=== PATIENT | male | born 1955 ===

== ENCOUNTER 2019-02-12 12:37 | Inpatient (IN) | payer MEDICAID, MEDICARE ==
[2019-02-12 14:34] LABS: BASO # 0.1 K/uL (0.0-0.2); BASO % 1.3 % (0.0-2.0); EOS # 0.2 K/uL (0.0-0.7); EOS % 2.2 % (0.0-4.0); HEMOGLOBIN 17.2 g/dL (12.0-18.0); LYMPH # 2.3 K/uL (1.0-4.3); LYMPH % 21.7 % (20.0-40.0); MEAN CELL VOLUME 91.2 fl (80.0-94.0); MEAN CORPUSCULAR HEMOGLOBIN 31.6 pg (27.0-31.0); MEAN CORPUSCULAR HGB CONC 34.6 g/dL (33.0-37.0); MONO # 0.8 K/uL (0.0-0.8); MONO % 7.2 % (0.0-10.0); NEUT # 7.2 K/uL (1.8-7.0); NEUT % 67.6 % (50.0-75.0); NRBC % 0.1 % (0.0-0.0); RBC 5.46 Mil/uL (4.40-5.90); RED CELL DISTRIBUTION WIDTH 13.8 % (11.5-14.5); WHITE BLOOD COUNT 10.7 K/uL (4.8-10.8)
[2019-02-12 14:47] LABS: ALB/GLOB RATIO 1.2 (1.0-2.1); ALBUMIN 4.1 g/dL (3.5-5.0); ALT/SGPT 48 U/L (21-72); AST/SGOT 38 U/L (17-59); BLOOD UREA NITROGEN 22 mg/dl (9-20); GFR NON-AFRICAN AMERICAN 56; LIPASE 149 U/L (23-300)
[2019-02-12 14:59] LABS: B-TYPE NATRIURETIC PEPTIDE 35.1 pg/ml (0-900)
--- NOTE | 2019-02-12 15:06 | ED PDOC ---
HPI: General Adult Time Seen by Provider: 02/12/19 14:00 Chief Complaint (Nursing): Abdominal Pain Chief Complaint (Provider): abd pain History Per: Patient History/Exam Limitations: no limitations Onset/Duration Of Symptoms: Days Current Symptoms Are (Timing): Still Present Severity: Moderate Pain Scale Rating Of: 6 Additional History Per: Patient Additional Complaint(s): 63 y/o male with hx of HTN and CAD presents with multiple complaints, intermittent chest pain, shortness of breath on exertion, intermittent dizziness, abdominal pain and nausea. Patient states he has not been feeling well for 3 months post having a colonoscopy and endoscopy. patient states he's been having intermittent left sided chest pain with exertion and increased Shortness of breath. He states lately he feels his abdomen has been distended and slight lower extremity swelling. Patient reports he has not taken "water pill" for a few weeks. Patient also states he had stent placement a month ago. Patient denies fever, vomiting, unilateral weakness. Past Medical History Reviewed: Historical Data, Nursing Documentation, Vital Signs Vital Signs: Last Vital Signs Temp 99 F 02/12/19 12:53 Pulse 112 H 02/12/19 12:53 Resp 16 02/12/19 12:53 BP 147/74 02/12/19 12:53 Pulse Ox 99 02/12/19 12:53 - Medical History PMH: CAD, Colonic Polyps, CVA (x2), Gastritis, HTN - Surgical History Surgical History: Coronary Stent - Family History Family History: States: Unknown Family Hx - Living Arrangements Living Arrangements: With Family - Social History Alcohol: None Drugs: Denies - Immunization History Hx Tetanus Toxoid Vaccination: No Hx Influenza Vaccination: Yes Hx Pneumococcal Vaccination: Yes - Home Medications Home Medications: Ambulatory Orders Medication Instructions Recorded Clopidogrel [Plavix] 75 mg PO DAILY 06/05/18 amLODIPine [Norvasc] 10 mg PO DAILY 06/05/18 Chlorthalidone [Hygroton] 50 mg PO DAILY 02/12/19 Omeprazole 40 mg PO DAILY 02/12/19 Ondansetron [Zofran Tab] 4 mg PO Q8 PRN 02/12/19 - Allergies Allergies/Adverse Reactions: Allergies Allergy/AdvReac Type Severity Reaction Status Date / Time No Known Allergies Allergy Verified 02/12/19 12:53 Review of Systems ROS Statement: Except As Marked, All Systems Reviewed And Found Negative Constitutional: Positive for: Weakness (generalized ). Negative for: Fever Eyes: Negative for: Pain Cardiovascular: Positive for: Chest Pain. Negative for: Palpitations Respiratory: Positive for: Shortness of Breath, SOB with Exertion. Negative for: Cough, Wheezing Gastrointestinal: Positive for: Nausea, Abdominal Pain. Negative for: Vomiting, Diarrhea Neurological: Positive for: Weakness, Dizziness. Negative for: Numbness, Incoordination, Change in Speech, Confusion, Altered Mental Status Physical Exam - Reviewed Nursing Documentation Reviewed: Yes Vital Signs Reviewed: Yes - Physical Exam Appears: Positive for: Well, Non-toxic, No Acute Distress Head Exam: Positive for: ATRAUMATIC, NORMAL INSPECTION, NORMOCEPHALIC Skin: Positive for: Normal Color, Warm, DRY Eye Exam: Positive for: EOMI, Normal appearance, PERRL ENT: Positive for: Normal ENT Inspection Neck: Positive for: Normal, Painless ROM Cardiovascular/Chest: Positive for: Regular Rate, Rhythm, Murmur. Negative for: Chest Non Tender, Edema, JVD Respiratory: Positive for: Normal Breath Sounds. Negative for: Wheezing, Respiratory Distress Pulses-Femoral (L): 2+ Pulses-Femoral (R): 2+ Pulses-Radial (L): 2+ Pulses-Radial (R): 2+ Gastrointestinal/Abdominal: Positive for: Normal Exam, Bowel Sounds (normactive ), Soft, Tenderness (epigastric ), Distended (soft ) Back: Positive for: Normal Inspection. Negative for: L CVA Tenderness, R CVA Tenderness Extremity: Positive for: Normal ROM Neurological/Psych: Positive for: Awake, Alert, Normal Tone, Oriented - Laboratory Results Result Diagrams: 02/12/19 14:25 02/12/19 14:25 Lab Results: Troponin I 0.0130 ng/mL (0.00-0.120) 02/12/19 14:25 NT-Pro-B Natriuret Pep 35.1 pg/ml (0-900) 02/12/19 14:25 Total Bilirubin 0.4 mg/dl (0.2-1.3) 02/12/19 14:25 AST 38 U/L (17-59) 02/12/19 14:25 ALT 48 U/L (21-72) 02/12/19 14:25 Alkaline Phosphatase 101 U/L (38-126) 02/12/19 14:25 Total Protein 7.7 G/DL (6.3-8.2) 02/12/19 14:25 Albumin 4.1 g/dL (3.5-5.0) 02/12/19 14:25 Globulin 3.5 gm/dL (2.2-3.9) 02/12/19 14:25 Albumin/Globulin Ratio 1.2 (1.0-2.1) 02/12/19 14:25 Lipase 149 U/L (23-300) 02/12/19 14:25 - ECG ECG Rhythm: Positive for: Sinus Rhythm Interpretation Of Abn EKG: ekg compared to previous EKG, no significant changes seen interpreted by dr. rivers Rate: 99 O2 Sat by Pulse Oximetry: 99 Pulse Ox Interpretation: Normal Medical Decision Making Medical Decision Making: --CBC --CMP --LIPASE --TROPONIN --EKG --CXR --IV INSERTION --ASPIRIN --KDUR: POTASSIUM 3.1 --LABS REVIEWED BY ME, K+:3.1 KDUR FOR SUPPLEMENT. CXR IS NEG, NEG TROPONIN. CASE DISCUSSED WITH DR. RIVERS. DR. SALAMANCA CALLED FOR ADMISSION TO TELE OBS/ R/O ACS WITH CARDIO CONSULT DR. Saman BENTON. CLINICAL FINDINGS DISCUSSED WITH [facility] FAMILY-HIPPA COMPLIANT AND AGREE WITH PLAN. 16:35; CASE DISCUSSED WITH DR. SALAMANCA, PATIENT ADMISSION FOR TELE-OBS, DX CHEST PAIN R/O ACS 16:37: DR. Saman BENTON AWARE OF CONSULT, MD WILL SEE PATIENT ON CONSULT. Accession No. : [id number] Patient Name / ID : ANTHONY ZEPEDA / [id number] Exam Date : 02/12/2019 14:55:59 ( Approved ) Study Comment : Sex / Age : M / 63Y Creator : aidee banks Dictator : Frank Quiroz MD Air Pollution Specialist : Agriculture Scientist : Frank Quiroz MD Approver2 : Report Date : 02/12/2019 15:27:43 My Comment : Date of service: 02/12/2019 HISTORY: shortness of breath COMPARISON: No prior. TECHNIQUE: Chest PA and lateral views FINDINGS: LUNGS: No active pulmonary disease. PLEURA: No significant pleural effusion identified. No pneumothorax apparent. CARDIOVASCULAR: No aortic atherosclerotic calcification present. Normal cardiac size. No pulmonary vascular congestion. OSSEOUS STRUCTURES: No significant abnormalities. VISUALIZED UPPER ABDOMEN: Normal. OTHER FINDINGS: None. IMPRESSION: No active disease. 1658: PATIENT REQUESTING CT ABD/PELVIS, PATIENT EDUCATED ON RISKS OF MULTIPLE CAT SCANS, PATIENT HAD CT DONE IN MAY WHICH WAS NEG. PATIENT AND FAMILY INSIST. 1757: Patient returned from CT scan c/o itchiness and hives to neck and back after receiving iV contrast. Patient denies allergy to iv constrast and seafood. Patient examined at bedside, lungs clear, neg for tonsillar swelling, multiple hives noted to back and face. Patient denies difficulty breathing and swallowing. Accession No. : [id number] Patient Name / ID : ANTHONY ZEPEDA / [id number] Exam Date : 02/12/2019 17:43:26 ( Approved ) Study Comment : Sex / Age : M / 63Y Creator : Frank Quiroz MD Dictator : Frank Quiroz MD Air Pollution Specialist : Agriculture Scientist : Frank Quiroz MD Approver2 : Report Date : 02/12/2019 18:13:24 My Comment : Date of service: 02/12/2019 PROCEDURE: CT Abdomen and Pelvis with contrast HISTORY: ABD PAIN COMPARISON: None. TECHNIQUE: Intravenous contrast dose: 95 cc Omnipaque 300. Radiation dose: Total exam DLP = 840.06 mGy-cm. This CT exam was performed using one or more of the following dose reduction techniques: Automated exposure control, adjustment of the mA and/or kV according to patient size, and/or use of iterative reconstruction technique. FINDINGS: LOWER THORAX: Unremarkable. LIVER: Hepatic steatosis. No focal masses. No intrahepatic bile duct dilatation or perihepatic ascites. GALLBLADDER AND BILE DUCTS: Unremarkable. PANCREAS: Unremarkable. No gross lesion or ductal dilatation. SPLEEN: Unremarkable. ADRENALS: Unremarkable. No mass. KIDNEYS AND URETERS: Unremarkable. No hydronephrosis. No solid mass. VASCULATURE: Unremarkable. No aortic aneurysm. Atherosclerotic calcification and mural plaque present. Findings are seen throughout the aorta which is non aneurysmal and ex tend into the iliac vessels. BOWEL: Unremarkable. No obstruction. No gross mural thickening. APPENDIX: A normal appendix is visualized in it's entirety. PERITONEUM: Unremarkable. No free fluid. No free air. LYMPH NODES: Unremarkable. No enlarged lymph nodes. BLADDER: Unremarkable. REPRODUCTIVE: Unremarkable. BONES: No acute fracture. OTHER FINDINGS: None. IMPRESSION: No significant or acute findings to account for/ related to the clinical presentation. Additional benign and/or incidental findings described above. 18:00: temp:98.5 hr:91 b/p;129/78 o2sat:95% rm air 19:00: Ct report reviewed by me. patient aware of findings. Patient pending bed on floor. Allergic reaction symptoms have improved. Disposition - Clinical Impression Clinical Impression: Chest pain - Patient ED Disposition Is Patient to be Admitted: Yes Counseled Patient/Family Regarding: Diagnosis - Disposition Disposition Time: 16:00 Condition: FAIR - Pt Status Changed To: Hospital Disposition Of: Observation - POA Present On Arrival: None
--- NOTE | 2019-02-12 15:42 | RAD ---
Date of service: 02/12/2019 HISTORY: shortness of breath COMPARISON: No prior. TECHNIQUE: Chest PA and lateral views FINDINGS: LUNGS: No active pulmonary disease. PLEURA: No significant pleural effusion identified. No pneumothorax apparent. CARDIOVASCULAR: No aortic atherosclerotic calcification present. Normal cardiac size. No pulmonary vascular congestion. OSSEOUS STRUCTURES: No significant abnormalities. VISUALIZED UPPER ABDOMEN: Normal. OTHER FINDINGS: None. IMPRESSION: No active disease.
[2019-02-12] MEDS ORDERED: Potassium Chloride 20 mEq ER Tab PO STA (16:04)
[2019-02-12] MEDS ORDERED: Potassium Chloride 20 mEq ER Tab PO ONE (16:15)
[2019-02-12] MEDS ORDERED: Sodium Chloride 0.9% 50 ML IV ONE (17:36)
[2019-02-12] MEDS ORDERED: Iohexol 300 100 ML IJ ONE (17:36)
[2019-02-12] MEDS ORDERED: DiphenhydrAMINE 50 mg/ml Inj IVP STA (17:58)
[2019-02-12] MEDS ORDERED: DiphenhydrAMINE 50 mg/ml Inj ONE (18:05)
--- NOTE | 2019-02-12 18:16 | CT ---
Date of service: 02/12/2019 PROCEDURE: CT Abdomen and Pelvis with contrast HISTORY: ABD PAIN COMPARISON: None. TECHNIQUE: Intravenous contrast dose: 95 cc Omnipaque 300. Radiation dose: Total exam DLP = 840.06 mGy-cm. This CT exam was performed using one or more of the following dose reduction techniques: Automated exposure control, adjustment of the mA and/or kV according to patient size, and/or use of iterative reconstruction technique. FINDINGS: LOWER THORAX: Unremarkable. LIVER: Hepatic steatosis. No focal masses. No intrahepatic bile duct dilatation or perihepatic ascites. GALLBLADDER AND BILE DUCTS: Unremarkable. PANCREAS: Unremarkable. No gross lesion or ductal dilatation. SPLEEN: Unremarkable. ADRENALS: Unremarkable. No mass. KIDNEYS AND URETERS: Unremarkable. No hydronephrosis. No solid mass. VASCULATURE: Unremarkable. No aortic aneurysm. Atherosclerotic calcification and mural plaque present. Findings are seen throughout the aorta which is non aneurysmal and extend into the iliac vessels. BOWEL: Unremarkable. No obstruction. No gross mural thickening. APPENDIX: A normal appendix is visualized in it's entirety. PERITONEUM: Unremarkable. No free fluid. No free air. LYMPH NODES: Unremarkable. No enlarged lymph nodes. BLADDER: Unremarkable. REPRODUCTIVE: Unremarkable. BONES: No acute fracture. OTHER FINDINGS: None. IMPRESSION: No significant or acute findings to account for/ related to the clinical presentation. Additional benign and/or incidental findings described above.
--- NOTE | 2019-02-12 20:07 | CP.PCM.CON ---
History of Present Illness - History of Present Illness History of Present Illness: I was asked to see patient by Dr Thurston Patient seen 02/12/191919 Patient is a 63 year old male with HTN CAD s/p PCI RCA, LCX PAD, active smoking who presents with dyspnea . The patinet decribes abdominal and lower quadrant pain. He has noted nause but no vomiting. His pain starts in his abdomen and travels to his chest, He states he has baseline dyspnea. He smokes daily. Review of Systems - Constitutional Constitutional: absent: As Per HPI, Anorexia, Chills, Daytime Sleepiness, Excessive Sweating, Fatigue, Fever, Frequent Falls, Headache, Increased Appetite, Lethargy, Malaise, Night Sweats, Snoring, Sleep Apnea, Weight Gain, Weight Loss, Weakness, Other - EENT Eyes: absent: As Per HPI, Blind Spots, Blurred Vision, Change in Vision, Decreased Night Vision, Diplopia, Discharge, Dry Eye, Exophthalmos, Floaters, Irritation, Itchy Eyes, Loss of Peripheral Vision, Pain, Photophobia, Requires Corrective Lenses, Sees Flashes, Spots in Vision, Tunnel Vision, Other Visual Disturbances, Loss of Vision, Other Ears: absent: As Per HPI, Decreased Hearing, Ear Discharge, Ear Pain, Tinnitus, Abnormal Hearing, Disequilibrium, Dizziness, Other Nose/Mouth/Throat: absent: As Per HPI, Epistaxis, Nasal Congestion, Nasal Discharge, Nasal Obstruction, Nasal Trauma, Nose Pain, Post Nasal Drip, Sinus Pain, Sinus Pressure, Bleeding Gums, Change in Voice, Dental Pain, Dry Mouth, D ysphagia, Halitosis, Hoarsness, Lip Swelling, Mouth Lesions, Mouth Pain, Odynophagia, Sore Throat, Throat Swelling, Tongue Swelling, Facial Pain, Neck Pain, Neck Mass, Other - Cardiovascular Cardiovascular: Dyspnea - Respiratory Respiratory: absent: As Per HPI, Cough, Dyspnea, Hemoptysis, Dyspnea on Exertion, Wheezing, Snoring, Stridor, Pain on Inspiration, Chest Congestion, Excessive Mucous Production, Change in Mucous Color, Pain with Coughing, Other - Gastrointestinal Gastrointestinal: Abdominal Pain - Genitourinary Genitourinary: absent: As Per HPI, Change in Urinary Stream, Difficulty Urinating, Dysuria, Flank Pain, Hematuria, Pyuria, Nocturia, Urinary Incontinence, Urinary Frequency, Urinary Hesitance, Urinary Urgency, Voiding F req/Small Amts, Freq UTI, Hx Renal/Bladder Calculi, Hx /Renal Surgery, Bladder Distension, Other - Musculoskeletal Musculoskeletal: absent: As Per HPI, Abnormal Gait, Arthralgias, Atrophy, Back Pain, Deformity, Joint Swelling, Limited Range of Motion, Loss of Height, Muscle Cramps, Muscle Weakness, Myalgias, Neck Pain, Numbness, Radiating Pain into Limb, Stiffness, Tingling, Other - Integumentary Integumentary: absent: As Per HPI, Acne, Alopecia, Bleeding Lesions, Change in Hair, Change in Nails, Change in Pigmentation, Changing Lesions, Dry Skin, Erythema, Furuncle, Hirsutism, Lesions, New Lesions, Non-Healing Lesions, Photosensitivity, Pruritus, Rash, Skin Pain, Skin Ulcer, Sores, Striae, Swelling, Unusual Bruising, Wounds, Jaundice, Other - Neurological Neurological: absent: As Per HPI, Abnormal Gait, Abnormal Hearing, Abnormal Movements, Abnormal Speech, Behavioral Changes, Burning Sensations, Confusion, Convulsions, Disequilibrium, Dizziness, Numbness, Focal Weakness, Frequent Falls, Headaches, Lack of Coordination, Loss of Vision, Memory Loss, Paresthesias, Radicular Pain, Restless Legs, Sensory Deficit, Syncope, Tingling, Tremor, Vertigo, Weakness, Other Visual Disturbances, Other - Psychiatric Psychiatric: absent: As Per HPI, Abnormal Sleep Pattern, Anhedonia, Anxiety, Auditory Hallucinations, Behavioral Changes, Change in Appetite, Change in Libido, Confusion, Depression, Difficulty Concentrating, Hallucinations, Homicidal Ideation, Hopelessness, Irritability, Memory Loss, Mood Swings, Panic Attacks, Paranoia, Suicidal Ideation, Visual Hallucinations, Tactile Hallucinations, Other - Endocrine Endocrine: absent: As Per HPI, Change in Body Appearance, Change in Libido, Cold Intolorance, Deepening of Voice, Excessive Sweating, Fatigue, Flushing, Heat Intolorance, Increase in Ring/Shoe/Hat Size, Palpitations, Polydipsia, Polyphagia, Polyuria, Other - Hematologic/Lymphatic Hematologic: absent: As Per HPI, Easy Bleeding, Easy Bruising, Lymphadenopathy, Other Past Patient History - Past Social History Alcohol: None Drugs: Denies - CARDIAC Hx Hypertension: Yes - GASTROINTESTINAL Hx Gastritis: Yes - PSYCHIATRIC Hx Substance Use: No - SURGICAL HISTORY Hx Coronary Stent: Yes - ANESTHESIA Hx Anesthesia: Yes Hx Anesthesia Reactions: No Meds Allergies/Adverse Reactions: Allergies Allergy/AdvReac Type Severity Reaction Status Date / Time No Known Allergies Allergy Verified 02/12/19 12:53 Physical Exam - Constitutional Appears: Non-toxic - Head Exam Head Exam: NORMAL INSPECTION - Eye Exam Eye Exam: Normal appearance - ENT Exam ENT Exam: Mucous Membranes Moist - Neck Exam Neck exam: Positive for: Full Rom - Respiratory Exam Respiratory Exam: NORMAL BREATHING PATTERN - Cardiovascular Exam Cardiovascular Exam: REGULAR RHYTHM - GI/Abdominal Exam GI & Abdominal Exam: Guarding, Normal Bowel Sounds, Soft, Tenderness - Rectal Exam Rectal Exam: Deferred - Extremities Exam Extremities exam: Positive for: normal inspection, pedal edema - Back Exam Back exam: NORMAL INSPECTION - Neurological Exam Neurological exam: Alert, Oriented x3 - Psychiatric Exam Psychiatric exam: Normal Affect - Skin Skin Exam: Normal Color Results - Vital Signs Recent Vital Signs: Last Vital Signs Temp 98.5 F 02/12/19 18:03 Pulse 99 H 02/12/19 19:55 Resp 16 02/12/19 18:03 BP 129/78 02/12/19 18:03 Pulse Ox 99 02/12/19 19:55 - Labs Result Diagrams: 02/12/19 14:25 02/12/19 14:25 Labs: Laboratory Results - last 24 hr 02/12/19 02/12/19 14:25 14:25 WBC 10.7 RBC 5.46 Hgb 17.2 Hct 49.8 MCV 91.2 MCH 31.6 H MCHC 34.6 RDW 13.8 Plt Count 288 MPV 8.0 Neut % (Auto) 67.6 Lymph % (Auto) 21.7 [place] % (Auto) 7.2 Eos % (Auto) 2.2 Baso % (Auto) 1.3 Neut # (Auto) 7.2 H Lymph # (Auto) 2.3 [place] # (Auto) 0.8 Eos # (Auto) 0.2 Baso # (Auto) 0.1 Sodium 137 Potassium 3.1 L Chloride 94 L Carbon Dioxide 30 Anion Gap 16 BUN 22 H Creatinine 1.3 Est GFR ( Amer) > 60 Est GFR (Non-Af Amer) 56 Random Glucose 117 H Calcium 9.0 Total Bilirubin 0.4 AST 38 ALT 48 Alkaline Phosphatase 101 Troponin I 0.0130 NT-Pro-B Natriuret Pep 35.1 Total Protein 7.7 Albumin 4.1 Globulin 3.5 Albumin/Globulin Ratio 1.2 Lipase 149 - EKG Data EKG shows normal: Sinus rhythm Assessment & Plan (1) PUD (peptic ulcer disease) Assessment and Plan: patient's presentation appears more realted to abdominal pain and PUD. Consider trial. consider CT abdomen. Status: Acute (2) Coronary artery disease Assessment and Plan: s/p stent left circumflex. patient will need continued ASA/Plavix. Status: Chronic (3) History of hypertension Assessment and Plan: blood pressure control Status: Chronic (4) Hyperlipidemia Status: Chronic
[2019-02-13 05:26] LABS: HEMOGLOBIN 16.6 g/dL (12.0-18.0); MEAN CELL VOLUME 91.2 fl (80.0-94.0); MEAN CORPUSCULAR HEMOGLOBIN 31.4 pg (27.0-31.0); MEAN CORPUSCULAR HGB CONC 34.4 g/dL (33.0-37.0); RBC 5.3 Mil/uL (4.40-5.90); RED CELL DISTRIBUTION WIDTH 13.8 % (11.5-14.5); WHITE BLOOD COUNT 6.2 K/uL (4.8-10.8)
[2019-02-13 05:33] LABS: ALB/GLOB RATIO 1.2 (1.0-2.1); ALBUMIN 4.1 g/dL (3.5-5.0); ALT/SGPT 45 U/L (21-72); AST/SGOT 28 U/L (17-59); BLOOD UREA NITROGEN 20 mg/dl (9-20); CALCIUM 9.6 mg/dL (8.4-10.2); GFR NON-AFRICAN AMERICAN > 60
--- NOTE | 2019-02-13 05:54 | CARD ---
APPROVED REPORT Date of service: 02/12/2019 EKG Measurement Heart [id number] <Conclusion> Normal sinus rhythm Left axis deviation Inferior infarct, age undetermined Abnormal ECG
--- NOTE | 2019-02-13 06:26 | CP.PCM.HP ---
<Mikel Grant - Last Filed: 02/13/19 13:33> History of Present Illness - History of Present Illness History of Present Illness: Pt seen and examined at bedside with Dr. Thurston. 63 yo m with pmhx of CAD, HTN presents with L sided, mid abdominal pain since colonoscopy 3 months prior. Pt reports he had colonoscopy at [facility], 7 polyps removed, benign. Since then, he has experienced intermittent, daily abdominal pain with nausea and vomiting. Pain is pressure, and squeezing. 10/10, occasionally radiates to epigastric/sternum. Aggravated with certain body movements. Alleviated with rest and change in body position. Triedn OTC pain meds, without significant relief. Experiences normal bowel movements. denies constipation or diarrhea. No blood in stool. Pt insists pain is not in chest GI: Dr. Gaffney Cardio: Dr. Gross surg: stent placement fam: lung cancer, htn, dm soc: smokes 2-3 cig/day x 50+ years; drinks 6 beers every other week; denies illicit drugs NKDA meds reconciled Present on Admission - Present on Admission Any Indicators Present on Admission: No History of Uncontrolled Diabetes: No Urinary Catheter: No Review of Systems - Cardiovascular Cardiovascular: As Per HPI - Gastrointestinal Gastrointestinal: As Per HPI Past Patient History - Past Medical History & Family History Past Medical History?: Yes - Past Social History Smoking Status: Current Some Days Smoker Alcohol: Social Drugs: Denies Home Situation {Lives}: With Family - CARDIAC Hx Hypertension: Yes - MUSCULOSKELETAL/RHEUMATOLOGICAL Hx Falls: No - GASTROINTESTINAL Hx Gastritis: Yes - PSYCHIATRIC Hx Substance Use: No - SURGICAL HISTORY Hx Coronary Stent: Yes - ANESTHESIA Hx Anesthesia: Yes Hx Anesthesia Reactions: No Meds Allergies/Adverse Reactions: Allergies Allergy/AdvReac Type Severity Reaction Status Date / Time No Known Allergies Allergy Verified 02/12/19 12:53 Physical Exam - Eye Exam Eye Exam: EOMI - ENT Exam ENT Exam: Mucous Membranes Moist - Respiratory Exam Respiratory Exam: Clear to Auscultation Bilateral, NORMAL BREATHING PATTERN. absent: Wheezes - Cardiovascular Exam Cardiovascular Exam: REGULAR RHYTHM, +S1, +S2 - GI/Abdominal Exam GI & Abdominal Exam: Normal Bowel Sounds, Soft, Tenderness (epigastric and L mid abdomen) - Neurological Exam Neurological exam: Alert, CN II-XII Intact, Oriented x3 Results - Vital Signs Recent Vital Signs: Last Vital Signs Temp 97.4 F L 02/13/19 05:00 Pulse 76 02/13/19 05:00 Resp 16 02/13/19 05:00 BP 116/76 02/13/19 05:00 Pulse Ox 95 02/13/19 05:00 - Labs Result Diagrams: 02/13/19 04:55 02/13/19 04:55 Labs: Laboratory Results - last 24 hr 02/12/19 02/12/19 02/13/19 14:25 14:25 04:55 WBC 10.7 6.2 RBC 5.46 5.30 Hgb 17.2 16.6 Hct 49.8 48.4 MCV 91.2 91.2 MCH 31.6 H 31.4 H MCHC 34.6 34.4 RDW 13.8 13.8 Plt Count 288 277 MPV 8.0 Neut % (Auto) 67.6 Lymph % (Auto) 21.7 [place] % (Auto) 7.2 Eos % (Auto) 2.2 Baso % (Auto) 1.3 Neut # (Auto) 7.2 H Lymph # (Auto) 2.3 [place] # (Auto) 0.8 Eos # (Auto) 0.2 Baso # (Auto) 0.1 Sodium 137 Potassium 3.1 L Chloride 94 L Carbon Dioxide 30 Anion Gap 16 BUN 22 H Creatinine 1.3 Est GFR ( Amer) > 60 Est GFR (Non-Af Amer) 56 Random Glucose 117 H Calcium 9.0 Total Bilirubin 0.4 AST 38 ALT 48 Alkaline Phosphatase 101 Troponin I 0.0130 NT-Pro-B Natriuret Pep 35.1 Total Protein 7.7 Albumin 4.1 Globulin 3.5 Albumin/Globulin Ratio 1.2 Lipase 149 02/13/19 04:55 WBC RBC Hgb Hct MCV MCH MCHC RDW Plt Count MPV Neut % (Auto) Lymph % (Auto) [place] % (Auto) Eos % (Auto) Baso % (Auto) Neut # (Auto) Lymph # (Auto) [place] # (Auto) Eos # (Auto) Baso # (Auto) Sodium 135 Potassium 3.2 L Chloride 95 L Carbon Dioxide 25 Anion Gap 18 BUN 20 Creatinine 1.2 Est GFR ( Amer) > 60 Est GFR (Non-Af Amer) > 60 Random Glucose 243 H Calcium 9.6 Total Bilirubin 0.5 AST 28 ALT 45 Alkaline Phosphatase 86 Troponin I NT-Pro-B Natriuret Pep Total Protein 7.6 Albumin 4.1 Globulin 3.5 Albumin/Globulin Ratio 1.2 Lipase Assessment & Plan - Assessment and Plan (Free Text) Assessment: Pt seen and examined at bedside with Dr. Thurston. 63 yo m with pmhx of CAD, HTN presents with L sided, mid abdominal pain since colonoscopy 3 months prior. Plan: Abdominal pain -L mid abdomen -no relief with protonix -pt and spouse request GI -GI: Dr. Garcia; further recs appreciated -pain management -monitor for progression and bowel movement Chest pain -r/o acs -radiographer cardiac catheterization -Cardiology: Dr. Gross; likely PUD -troponin negative x2 -monitor for further chest pain HTN -c/w amlodipine, chlorthalidone hx of CAD -c/w asa, plavix Hypokalemia -3.2 -k runs -f/u labs DVT prophylaxis -on asa/plavix Case and plan d/w Dr. Karena Grant MD PGY-2 <Elieser Thurston K - Last Filed: 02/14/19 12:45> Results - Vital Signs Recent Vital Signs: Last Vital Signs Temp 97.4 F L 02/14/19 12:00 Pulse 66 02/14/19 12:20 Resp 18 02/14/19 12:00 BP 108/69 02/14/19 12:20 Pulse Ox 94 L 02/14/19 12:00 - Labs Result Diagrams: 02/14/19 04:55 02/14/19 04:55 Labs: Laboratory Results - last 24 hr 02/13/19 02/13/19 02/14/19 10:40 17:30 04:55 WBC 11.6 H D RBC 5.09 Hgb 16.1 Hct 46.3 MCV 91.0 MCH 31.7 H MCHC 34.8 RDW 13.7 Plt Count 278 Sodium Potassium Chloride Carbon Dioxide Anion Gap BUN Creatinine Est GFR ( Amer) Est GFR (Non-Af Amer) Random Glucose Hemoglobin A1c 6.2 Calcium C-Reactive Protein 8.70 02/14/19 04:55 WBC RBC Hgb Hct MCV MCH MCHC RDW Plt Count Sodium 138 Potassium 3.1 L Chloride 102 Carbon Dioxide 29 Anion Gap 10 BUN 24 H Creatinine 1.1 Est GFR ( Amer) > 60 Est GFR (Non-Af Amer) > 60 Random Glucose 98 Hemoglobin A1c Calcium 8.9 C-Reactive Protein Assessment & Plan - Assessment and Plan (Free Text) Plan: Patient was personally seen and examined by me in rounds with residents. Available labs and diagnostic data reviewed. Case, Patient's condition and management plan discussed with residents in rounds. Agree with resident's progress note. Plan: As ordered.
[2019-02-13] MEDS: Pantoprazole 40 mg EC Tab PO SCH (09:15)
[2019-02-13] MEDS ORDERED: Potassium Chloride 20 mEq/15 ml LIQ UD PO ONE (11:28)
--- NOTE | 2019-02-13 11:48 | CP.PCM.CON ---
History of Present Illness - History of Present Illness History of Present Illness: GI CONSULT FOR DR. RIVAS 63M presents to [facility] for abdominal pain. Patient states pain has been ongoing since he had a colonoscopy 3 months ago in an outpatient setting. Colonoscopy done by Dr. Gaffney. During colonoscopy, he states 14 polyps where removed and as far as he knows they were benign on pathology. He states the pain has been waxing and waning, and got much worse yesterday. Patient is located in the left lower quadrant, and sharp/shooting/twisting in nature. He denies association with nausea or vomiting, denies chills. He states he has been having daily bowel movements which is normal in nature. He states he has an appointment in Dr. Rivas office for March 11. PMH: CAD s/p PCI RCA/LCX stent 1 month ago, HTN, HLD, PAD PSH: denies Social: admits to 2cigarretes daily, admits to social alcohol use, denies illi cit drug use Allergies: NKDA Past Patient History - Past Medical History & Family History Past Medical History?: Yes - Past Social History Smoking Status: Current Some Days Smoker - CARDIAC Hx Hypertension: Yes - MUSCULOSKELETAL/RHEUMATOLOGICAL Hx Falls: No - GASTROINTESTINAL Hx Gastritis: Yes - PSYCHIATRIC Hx Substance Use: No - SURGICAL HISTORY Hx Coronary Stent: Yes - ANESTHESIA Hx Anesthesia: Yes Hx Anesthesia Reactions: No Meds Allergies/Adverse Reactions: Allergies Allergy/AdvReac Type Severity Reaction Status Date / Time No Known Allergies Allergy Verified 02/12/19 12:53 - Medications Medications: Current Medications Amlodipine Besylate (Norvasc) 10 mg PO DAILY [facility] Last Admin: 02/13/19 09:14 Dose: 10 mg Chlorthalidone (Hygroton) 50 mg PO DAILY [facility] Last Admin: 02/13/19 09:14 Dose: 50 mg Clopidogrel Bisulfate (Plavix) 75 mg PO DAILY [facility] Last Admin: 02/13/19 09:15 Dose: 75 mg Ondansetron HCl (Zofran Tab) 4 mg PO Q8 PRN PRN Reason: Nausea/Vomiting Pantoprazole Sodium (Protonix Ec Tab) 40 mg PO DAILY [facility] Last Admin: 02/13/19 09:15 Dose: 40 mg Physical Exam - Constitutional Appears: Non-toxic, No Acute Distress - Eye Exam Eye Exam: EOMI, PERRL - ENT Exam ENT Exam: Mucous Membranes Moist - Respiratory Exam Respiratory Exam: Clear to Auscultation Bilateral, NORMAL BREATHING PATTERN - Cardiovascular Exam Cardiovascular Exam: REGULAR RHYTHM, +S1, +S2 - GI/Abdominal Exam GI & Abdominal Exam: Soft, Tenderness (moderate left abdominal tenderness). absent: Distended, Firm, Guarding, Rebound, Rigid - Extremities Exam Extremities exam: Negative for: pedal edema, tenderness - Neurological Exam Neurological exam: Alert, Oriented x3 - Skin Skin Exam: Dry, Intact, Normal Color, Warm Results - Vital Signs Recent Vital Signs: Last Vital Signs Temp 97.9 F 02/13/19 07:42 Pulse 90 02/13/19 09:14 Resp 20 02/13/19 07:42 BP 144/93 H 02/13/19 09:14 Pulse Ox 96 02/13/19 07:42 - Labs Result Diagrams: 02/13/19 04:55 02/13/19 04:55 Labs: Laboratory Results - last 24 hr 02/12/19 02/12/19 02/13/19 14:25 14:25 04:55 WBC 10.7 6.2 RBC 5.46 5.30 Hgb 17.2 16.6 Hct 49.8 48.4 MCV 91.2 91.2 MCH 31.6 H 31.4 H MCHC 34.6 34.4 RDW 13.8 13.8 Plt Count 288 277 MPV 8.0 Neut % (Auto) 67.6 Lymph % (Auto) 21.7 [place] % (Auto) 7.2 Eos % (Auto) 2.2 Baso % (Auto) 1.3 Neut # (Auto) 7.2 H Lymph # (Auto) 2.3 [place] # (Auto) 0.8 Eos # (Auto) 0.2 Baso # (Auto) 0.1 Sodium 137 Potassium 3.1 L Chloride 94 L Carbon Dioxide 30 Anion Gap 16 BUN 22 H Creatinine 1.3 Est GFR ( Amer) > 60 Est GFR (Non-Af Amer) 56 Random Glucose 117 H Calcium 9.0 Total Bilirubin 0.4 AST 38 ALT 48 Alkaline Phosphatase 101 Troponin I 0.0130 NT-Pro-B Natriuret Pep 35.1 Total Protein 7.7 Albumin 4.1 Globulin 3.5 Albumin/Globulin Ratio 1.2 Lipase 149 02/13/19 02/13/19 04:55 09:50 WBC RBC Hgb Hct MCV MCH MCHC RDW Plt Count MPV Neut % (Auto) Lymph % (Auto) [place] % (Auto) Eos % (Auto) Baso % (Auto) Neut # (Auto) Lymph # (Auto) [place] # (Auto) Eos # (Auto) Baso # (Auto) Sodium 135 Potassium 3.2 L Chloride 95 L Carbon Dioxide 25 Anion Gap 18 BUN 20 Creatinine 1.2 Est GFR ( Amer) > 60 Est GFR (Non-Af Amer) > 60 Random Glucose 243 H Calcium 9.6 Total Bilirubin 0.5 AST 28 ALT 45 Alkaline Phosphatase 86 Troponin I < 0.0120 NT-Pro-B Natriuret Pep Total Protein 7.6 Albumin 4.1 Globulin 3.5 Albumin/Globulin Ratio 1.2 Lipase Assessment & Plan - Assessment and Plan (Free Text) Assessment: 63M with mild/moderate stool burden, diverticulosis on CT Plan: - advance diet as tolerate - IV fluids - pain control - stool softeners - serial abdominal exams - Monitor labs Further recs discuss with Dr. Jose hCu, PGY3
[2019-02-13] MEDS ORDERED: HYDROmorphone 1 mg/ml ISec IVP PRN (11:57)
[2019-02-13] MEDS: Sodium Chloride 0.9% 1,000 ML IV SCH ×2 (13:37→22:00)
[2019-02-14 06:17] LABS: HEMOGLOBIN 16.1 g/dL (12.0-18.0); MEAN CORPUSCULAR HEMOGLOBIN 31.7 pg (27.0-31.0); MEAN CORPUSCULAR HGB CONC 34.8 g/dL (33.0-37.0); RBC 5.09 Mil/uL (4.40-5.90); RED CELL DISTRIBUTION WIDTH 13.7 % (11.5-14.5)
[2019-02-14 06:28] LABS: BLOOD UREA NITROGEN 24 mg/dl (9-20); CALCIUM 8.9 mg/dL (8.4-10.2); GFR NON-AFRICAN AMERICAN > 60
--- NOTE | 2019-02-14 06:33 | CP.PCM.PN ---
<Mikel Grant - Last Filed: 02/14/19 10:55> Subjective - Date & Time of Evaluation Date of Evaluation: 02/14/19 Time of Evaluation: 06:33 - Subjective Subjective: Pt seen and examined at bedside with attending, Dr. Thurston. Pt reports improved abdo pain overnight, however, this am has returned. Experiencing normal PO intake and bowel movements. Denies diarrhea, constipation, hematochezia, vomiting. Objective - Vital Signs/Intake and Output Vital Signs (last 24 hours): Temp Pulse Resp BP Pulse Ox 97.7 F 70 18 106/66 96 02/14/19 04:52 02/14/19 04:52 02/14/19 04:52 02/14/19 04:52 02/14/19 04:52 - Medications Medications: Current Medications Amlodipine Besylate (Norvasc) 10 mg PO DAILY [facility] Last Admin: 02/13/19 09:14 Dose: 10 mg Chlorthalidone (Hygroton) 50 mg PO DAILY [facility] Last Admin: 02/13/19 09:14 Dose: 50 mg Clopidogrel Bisulfate (Plavix) 75 mg PO DAILY [facility] Last Admin: 02/13/19 09:15 Dose: 75 mg Dicyclomine HCl (Bentyl) 10 mg PO QID [facility] Last Admin: 02/13/19 21:25 Dose: 10 mg Docusate Sodium (Colace) 100 mg PO DAILY [facility] Last Admin: 02/13/19 13:37 Dose: 100 mg Sodium Chloride (Sodium Chloride 0.9%) 1,000 mls @ 100 mls/hr IV .Q10H [facility] Stop: 02/14/19 11:57 Last Admin: 02/13/19 22:00 Dose: 100 mls/hr Ketorolac Tromethamine (Toradol) 15 mg IVP Q6 PRN PRN Reason: Pain, severe (8-10) Last Admin: 02/13/19 13:38 Dose: 15 mg Ondansetron HCl (Zofran Tab) 4 mg PO Q8 PRN PRN Reason: Nausea/Vomiting Pantoprazole Sodium (Protonix Ec Tab) 40 mg PO DAILY [facility] Last Admin: 02/13/19 09:15 Dose: 40 mg - Labs Labs: 02/13/19 04:55 02/14/19 04:55 - Constitutional Appears: No Acute Distress - Eye Exam Eye Exam: EOMI - ENT Exam ENT Exam: Mucous Membranes Moist - Respiratory Exam Respiratory Exam: Clear to Ausculation Bilateral, NORMAL BREATHING PATTERN. absent: Wheezes - Cardiovascular Exam Cardiovascular Exam: REGULAR RHYTHM, +S1, +S2 - GI/Abdominal Exam GI & Abdominal Exam: Soft, Tenderness (L lateral mid abdomen to deep palpation) - Extremities Exam Extremities Exam: absent: Calf Tenderness - Neurological Exam Neurological Exam: Alert, Awake, CN II-XII Intact, Oriented x3 - Psychiatric Exam Psychiatric exam: Normal Affect, Normal Mood Assessment and Plan (1) Abdominal pain Status: Acute (2) HTN (hypertension) Status: Acute (3) Hypokalemia Status: Acute (4) Chest pain Status: Acute (5) Coronary artery disease Status: Chronic - Assessment and Plan (Free Text) Assessment: Pt seen and examined at bedside with Dr. Thurston. 63 yo m with pmhx of CAD, HTN presents with L sided, mid abdominal pain since colonoscopy 3 months prior. Plan: Abdominal pain -L mid abdomen -minimal relief with protonix -pt and spouse request GI -GI: Dr. 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 Gross; likely PUD -troponin negative x2 -monitor for further chest pain HTN -c/w amlodipine, chlorthalidone hx of CAD -c/w asa, plavix Hypokalemia -3.1 -s/p k runs -IVF D5 1/2NS k 20 meq -f/u labs DVT prophylaxis -on asa/plavix Case and plan d/w Dr. Karena Grant MD PGY-2 <Elieser Thurston K - Last Filed: 02/14/19 12:41> Objective - Vital Signs/Intake and Output Vital Signs (last 24 hours): Temp Pulse Resp BP Pulse Ox 97.4 F L 66 18 108/69 94 L 02/14/19 12:00 02/14/19 12:20 02/14/19 12:00 02/14/19 12:20 02/14/19 12:00 - Medications Medications: Current Medications Amlodipine Besylate (Norvasc) 10 mg PO DAILY [facility] Last Admin: 02/14/19 12:20 Dose: 10 mg Chlorthalidone (Hygroton) 50 mg PO DAILY [facility] Last Admin: 02/14/19 08:45 Dose: 50 mg Clopidogrel Bisulfate (Plavix) 75 mg PO DAILY [facility] Last Admin: 02/14/19 08:46 Dose: 75 mg Dicyclomine HCl (Bentyl) 10 mg PO QID [facility] Last Admin: 02/14/19 12:20 Dose: 10 mg Docusate Sodium (Colace) 100 mg PO DAILY [facility] Last Admin: 02/14/19 08:45 Dose: 100 mg Potassium Chloride/Dextrose/Sod Cl (Potassium Chl 40 Meq In D5-1/2ns) 1,000 mls @ 100 mls/hr IV .Q10H [facility] Stop: 02/15/19 06:49 Last Admin: 02/14/19 08:47 Dose: 100 mls/hr Ketorolac Tromethamine (Toradol) 15 mg IVP Q6 PRN PRN Reason: Pain, severe (8-10) Last Admin: 02/14/19 08:47 Dose: 15 mg Ondansetron HCl (Zofran Tab) 4 mg PO Q8 PRN PRN Reason: Nausea/Vomiting Pantoprazole Sodium (Protonix Ec Tab) 40 mg PO DAILY [facility] Last Admin: 02/14/19 08:46 Dose: 40 mg - Labs Labs: 02/14/19 04:55 02/14/19 04:55 Assessment and Plan - Assessment and Plan (Free Text) Plan: Patient was personally seen and examined by me in rounds with residents. Available labs and diagnostic data reviewed. Case, Patient's condition and management plan discussed with residents in rounds. Agree with resident's progress note. Plan: As ordered.
[2019-02-14 06:39] LABS: WHITE BLOOD COUNT 11.6 K/uL (4.8-10.8)
[2019-02-14] MEDS: Pantoprazole 40 mg EC Tab PO SCH (08:46)
[2019-02-14] MEDS: Potassium Chl 40 mEq in D5-1/2 1,000 ML IV SCH ×2 (08:47→17:58)
--- NOTE | 2019-02-14 12:26 | CP.PCM.PN ---
Subjective - Date & Time of Evaluation Date of Evaluation: 02/14/19 Time of Evaluation: 12:24 - Subjective Subjective: GI NOTE FOR DR. RIVAS 63M seen and examined at bedside. States pain is generally improving, states he is tolerating diet. Denies nausea or vomiting. Objective - Vital Signs/Intake and Output Vital Signs (last 24 hours): Temp Pulse Resp BP Pulse Ox 97.4 F L 66 18 108/69 94 L 02/14/19 12:00 02/14/19 12:20 02/14/19 12:00 02/14/19 12:20 02/14/19 12:00 - Medications Medications: Current Medications Amlodipine Besylate (Norvasc) 10 mg PO DAILY [facility] Last Admin: 02/14/19 12:20 Dose: 10 mg Chlorthalidone (Hygroton) 50 mg PO DAILY [facility] Last Admin: 02/14/19 08:45 Dose: 50 mg Clopidogrel Bisulfate (Plavix) 75 mg PO DAILY [facility] Last Admin: 02/14/19 08:46 Dose: 75 mg Dicyclomine HCl (Bentyl) 10 mg PO QID [facility] Last Admin: 02/14/19 12:20 Dose: 10 mg Docusate Sodium (Colace) 100 mg PO DAILY [facility] Last Admin: 02/14/19 08:45 Dose: 100 mg Potassium Chloride/Dextrose/Sod Cl (Potassium Chl 40 Meq In D5-1/2ns) 1,000 mls @ 100 mls/hr IV .Q10H [facility] Stop: 02/15/19 06:49 Last Admin: 02/14/19 08:47 Dose: 100 mls/hr Ketorolac Tromethamine (Toradol) 15 mg IVP Q6 PRN PRN Reason: Pain, severe (8-10) Last Admin: 02/14/19 08:47 Dose: 15 mg Ondansetron HCl (Zofran Tab) 4 mg PO Q8 PRN PRN Reason: Nausea/Vomiting Pantoprazole Sodium (Protonix Ec Tab) 40 mg PO DAILY [facility] Last Admin: 02/14/19 08:46 Dose: 40 mg - Labs Labs: 02/14/19 04:55 02/14/19 04:55 - Constitutional Appears: Non-toxic, No Acute Distress - ENT Exam ENT Exam: Mucous Membranes Moist - Respiratory Exam Respiratory Exam: Clear to Ausculation Bilateral - Cardiovascular Exam Cardiovascular Exam: REGULAR RHYTHM, +S1, +S2 - GI/Abdominal Exam GI & Abdominal Exam: Soft, Tenderness. absent: Distended, Firm, Guarding, Rigid, Rebound - Neurological Exam Neurological Exam: Alert, Awake Assessment and Plan - Assessment and Plan (Free Text) Assessment: 63M with left sided abdominal pain CT scan unremarkable, possible diverticulosis vs PUD Plan: - Continue diet - continue pain control - PPIs, Stool softeners Further recs discuss with Dr. Jose Chu, PGY3
--- NOTE | 2019-02-14 17:31 | CP.PCM.CON ---
Past Patient History - Past Medical History & Family History Past Medical History?: Yes - Past Social History Smoking Status: Heavy Smoker > 10 Cigarettes Daily - CARDIAC Hx Hypertension: Yes - MUSCULOSKELETAL/RHEUMATOLOGICAL Hx Falls: No - GASTROINTESTINAL Hx Gastritis: Yes - PSYCHIATRIC Hx Substance Use: No - SURGICAL HISTORY Hx Coronary Stent: Yes - ANESTHESIA Hx Anesthesia: Yes Hx Anesthesia Reactions: No Meds Allergies/Adverse Reactions: Allergies Allergy/AdvReac Type Severity Reaction Status Date / Time No Known Allergies Allergy Verified 02/12/19 12:53 - Medications Medications: Current Medications Amlodipine Besylate (Norvasc) 10 mg PO DAILY [facility] Last Admin: 02/14/19 12:20 Dose: 10 mg Aspirin (Aspirin Chewable) 81 mg PO DAILY [facility] Chlorthalidone (Hygroton) 50 mg PO DAILY [facility] Last Admin: 02/14/19 08:45 Dose: 50 mg Clopidogrel Bisulfate (Plavix) 75 mg PO DAILY [facility] Last Admin: 02/14/19 08:46 Dose: 75 mg Dicyclomine HCl (Bentyl) 10 mg PO QID [facility] Last Admin: 02/14/19 16:58 Dose: 10 mg Docusate Sodium (Colace) 100 mg PO DAILY [facility] Last Admin: 02/14/19 08:45 Dose: 100 mg Potassium Chloride/Dextrose/Sod Cl (Potassium Chl 40 Meq In D5-1/2ns) 1,000 mls @ 100 mls/hr IV .Q10H [facility] Stop: 02/15/19 06:49 Last Admin: 02/14/19 08:47 Dose: 100 mls/hr Ketorolac Tromethamine (Toradol) 15 mg IVP Q6 PRN PRN Reason: Pain, severe (8-10) Last Admin: 02/14/19 08:47 Dose: 15 mg Ondansetron HCl (Zofran Tab) 4 mg PO Q8 PRN PRN Reason: Nausea/Vomiting Pantoprazole Sodium (Protonix Ec Tab) 40 mg PO DAILY [facility] Last Admin: 02/14/19 08:46 Dose: 40 mg Results - Vital Signs Recent Vital Signs: Last Vital Signs Temp 97.7 F 02/14/19 15:41 Pulse 81 02/14/19 15:41 Resp 20 02/14/19 15:41 BP 114/72 02/14/19 15:41 Pulse Ox 94 L 02/14/19 15:41 - Labs Result Diagrams: 02/14/19 04:55 02/14/19 04:55 Labs: Laboratory Results - last 24 hr 02/13/19 02/14/19 02/14/19 17:30 04:55 04:55 WBC 11.6 H D RBC 5.09 Hgb 16.1 Hct 46.3 MCV 91.0 MCH 31.7 H MCHC 34.8 RDW 13.7 Plt Count 278 Sodium 138 Potassium 3.1 L Chloride 102 Carbon Dioxide 29 Anion Gap 10 BUN 24 H Creatinine 1.1 Est GFR ( Amer) > 60 Est GFR (Non-Af Amer) > 60 Random Glucose 98 Calcium 8.9 C-Reactive Protein 8.70 Assessment & Plan - Assessment and Plan (Free Text) Plan: pt with hx of pci 1 month ago. need to restart asa. needs low dose bb. mi has ruled out. will order echo. cont tele. 55 min total care time.
[2019-02-15 05:59] LABS: BASO # 0.1 K/uL (0.0-0.2); BASO % 0.7 % (0.0-2.0); EOS # 0.3 K/uL (0.0-0.7); EOS % 3.6 % (0.0-4.0); HEMOGLOBIN 15.9 g/dL (12.0-18.0); LYMPH # 2.9 K/uL (1.0-4.3); LYMPH % 33.2 % (20.0-40.0); MEAN CELL VOLUME 91.4 fl (80.0-94.0); MEAN CORPUSCULAR HEMOGLOBIN 30.9 pg (27.0-31.0); MEAN CORPUSCULAR HGB CONC 33.8 g/dL (33.0-37.0); MEAN PLATELET VOLUME 8.3 fl (7.2-11.7); MONO # 0.7 K/uL (0.0-0.8); MONO % 7.9 % (0.0-10.0); NEUT # 4.7 K/uL (1.8-7.0); NEUT % 54.6 % (50.0-75.0); NRBC % 0.1 % (0.0-0.0); RBC 5.16 Mil/uL (4.40-5.90); RED CELL DISTRIBUTION WIDTH 13.9 % (11.5-14.5); WHITE BLOOD COUNT 8.7 K/uL (4.8-10.8)
[2019-02-15 06:11] LABS: BLOOD UREA NITROGEN 22 mg/dl (9-20); GFR NON-AFRICAN AMERICAN > 60
--- NOTE | 2019-02-15 07:29 | CP.PCM.DIS ---
Provider - Provider Date of Admission: 02/14/19 14:22 Attending physician: Elieser Thurston MD Consults: 02/12/19 16:34 Cardiology Consult Stat Comment: Consulting Provider: Clara Gross Consulting Physician: Clara Gross Reason for Consult: CHEST PAIN 02/13/19 10:06 Gastroenterology Consult Routine Comment: Consulting Provider: Juan Garcia Consulting Physician: Juan Garcia Reason for Consult: L mid abdominal pain s/p colonoscopy [address] Thurston Time Spent in preparation of Discharge (in minutes): 30 Diagnosis - Discharge Diagnosis (1) Abdominal pain Status: Acute (2) HTN (hypertension) Status: Acute (3) Hypokalemia Status: Acute (4) Chest pain Status: Acute (5) Coronary artery disease Status: Chronic Hospital Course - Lab Results Lab Results: Most Recent Lab Values WBC 8.7 K/uL (4.8-10.8) 02/15/19 04:50 RBC 5.16 Mil/uL (4.40-5.90) 02/15/19 04:50 Hgb 15.9 g/dL (12.0-18.0) 02/15/19 04:50 Hct 47.2 % (35.0-51.0) 02/15/19 04:50 MCV 91.4 fl (80.0-94.0) 02/15/19 04:50 MCH 30.9 pg (27.0-31.0) 02/15/19 04:50 MCHC 33.8 g/dL (33.0-37.0) 02/15/19 04:50 RDW 13.9 % (11.5-14.5) 02/15/19 04:50 Plt Count 266 K/uL (130-400) 02/15/19 04:50 MPV 8.3 fl (7.2-11.7) 02/15/19 04:50 Neut % (Auto) 54.6 % (50.0-75.0) 02/15/19 04:50 Lymph % (Auto) 33.2 % (20.0-40.0) 02/15/19 04:50 [place] % (Auto) 7.9 % (0.0-10.0) 02/15/19 04:50 Eos % (Auto) 3.6 % (0.0-4.0) 02/15/19 04:50 Baso % (Auto) 0.7 % (0.0-2.0) 02/15/19 04:50 Neut # (Auto) 4.7 K/uL (1.8-7.0) 02/15/19 04:50 Lymph # (Auto) 2.9 K/uL (1.0-4.3) 02/15/19 04:50 [place] # (Auto) 0.7 K/uL (0.0-0.8) 02/15/19 04:50 Eos # (Auto) 0.3 K/uL (0.0-0.7) 02/15/19 04:50 Baso # (Auto) 0.1 K/uL (0.0-0.2) 02/15/19 04:50 Sodium 138 mmol/l (132-148) 02/15/19 04:50 Potassium 3.3 MMOL/L (3.6-5.0) L 02/15/19 04:50 Chloride 100 mmol/L (98-107) 02/15/19 04:50 Carbon Dioxide 29 mmol/L (22-30) 02/15/19 04:50 Anion Gap 12 (10-20) 02/15/19 04:50 BUN 22 mg/dl (9-20) H 02/15/19 04:50 Creatinine 1.1 mg/dl (0.8-1.5) 02/15/19 04:50 Est GFR ( Amer) > 60 02/15/19 04:50 Est GFR (Non-Af Amer) > 60 02/15/19 04:50 Random Glucose 114 mg/dL (75-110) H 02/15/19 04:50 Hemoglobin A1c 6.2 % (4.2-6.5) 02/13/19 10:40 Calcium 9.0 mg/dL (8.4-10.2) 02/15/19 04:50 Magnesium 1.8 MG/DL (1.6-2.3) 02/15/19 04:50 Total Bilirubin 0.5 mg/dl (0.2-1.3) 02/13/19 04:55 AST 28 U/L (17-59) 02/13/19 04:55 ALT 45 U/L (21-72) 02/13/19 04:55 Alkaline Phosphatase 86 U/L (38-126) 02/13/19 04:55 Troponin I < 0.0120 ng/mL (0.00-0.120) 02/13/19 09:50 C-Reactive Protein 8.70 mg/L (0.0-9.9) 02/13/19 17:30 NT-Pro-B Natriuret Pep 35.1 pg/ml (0-900) 02/12/19 14:25 Total Protein 7.6 G/DL (6.3-8.2) 02/13/19 04:55 Albumin 4.1 g/dL (3.5-5.0) 02/13/19 04:55 Globulin 3.5 gm/dL (2.2-3.9) 02/13/19 04:55 Albumin/Globulin Ratio 1.2 (1.0-2.1) 02/13/19 04:55 Lipase 149 U/L (23-300) 02/12/19 14:25 - Hospital Course Hospital Course: Pt seen and examined at bedside with attending, Dr. Thurston. 63 yo m with pmhx of CAD, HTN presents with L sided, mid abdominal pain since colonoscopy 3 months pr ior. Abdominal pain -L mid abdomen -minimal relief with protonix -pt and spouse request GI -GI: Dr. Garcia: ADAT, IVF, pain management, stool softener, abdo exams -Pt discharged home to f/u with Dr. Garcia for further management. 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 Gross/Dr. Caban; likely PUD -follow up with Dr. Gross outpatient HTN -c/w amlodipine, chlorthalidone, metoprolol hx of CAD -c/w asa, plavix, metoprolol Hypokalemia -3.3 -s/p k runs -IVF D5 1/2NS k 20 meq DVT prophylaxis -on asa/plavix Pt to f/u with Renato Rosales, and Jose in 1 week. Case and plan d/w Dr. Karena Grant MD PGY-2 Discharge Exam - Head Exam Head Exam: NORMAL INSPECTION - Eye Exam Eye Exam: EOMI - Respiratory Exam Respiratory Exam: Clear to PA & Lateral, NORMAL BREATHING PATTERN. absent: Chest Wall Tenderness - Cardiovascular Exam Cardiovascular Exam: REGULAR RHYTHM, +S1, +S2 - GI/Abdominal Exam GI & Abdominal Exam: Normal Bowel Sounds, Soft. absent: Tenderness - Neurological Exam Neurological exam: Alert, CN II-XII Intact, Oriented x3 - Psychiatric Exam Psychiatric exam: Normal Affect, Normal Mood Discharge Plan - Discharge Medications Prescriptions: Dicyclomine [Bentyl] 10 mg PO QID #120 cap - Follow Up Plan Condition: FAIR Disposition: HOME/ ROUTINE Instructions: Acute Abdomen (Belly Pain), Adult (DC), Chest Pain (DC), Acute Abdominal Pain (DC), Acute Abdominal Pain (GEN), Hypertension (DC), Hypertension (GEN), Hypokalemia (DC), Hypokalemia (GEN) Additional Instructions: follow up with in 1 week follow up with 1-2 weeks Referrals: Elieser Thurston MD [Staff Provider] - Juan Garcia MD [Staff Provider] -
[2019-02-15 07:35] VITALS: RESP 18
--- NOTE | 2019-02-15 07:39 | CP.PCM.PN ---
<Aris Chu - Last Filed: 02/15/19 07:37> Subjective - Date & Time of Evaluation Date of Evaluation: 02/15/19 Time of Evaluation: 07:37 - Subjective Subjective: GI NOTE FOR DR. RIVAS 63M seen and examined at bedside. Patient states pain improving, tolerating diet, denies nausea or vomiting. Objective - Vital Signs/Intake and Output Vital Signs (last 24 hours): Temp Pulse Resp BP Pulse Ox 98.1 F 62 18 120/78 97 02/15/19 05:00 02/15/19 05:00 02/15/19 05:00 02/15/19 05:00 02/15/19 05:00 - Medications Medications: Current Medications Amlodipine Besylate (Norvasc) 10 mg PO DAILY [facility] Last Admin: 02/14/19 12:20 Dose: 10 mg Aspirin (Aspirin Chewable) 81 mg PO DAILY [facility] Last Admin: 02/14/19 17:55 Dose: 81 mg Chlorthalidone (Hygroton) 50 mg PO DAILY [facility] Last Admin: 02/14/19 08:45 Dose: 50 mg Clopidogrel Bisulfate (Plavix) 75 mg PO DAILY [facility] Last Admin: 02/14/19 08:46 Dose: 75 mg Dicyclomine HCl (Bentyl) 10 mg PO QID [facility] Last Admin: 02/14/19 21:34 Dose: 10 mg Docusate Sodium (Colace) 100 mg PO DAILY [facility] Last Admin: 02/14/19 08:45 Dose: 100 mg Ketorolac Tromethamine (Toradol) 15 mg IVP Q6 PRN PRN Reason: Pain, severe (8-10) Last Admin: 02/14/19 08:47 Dose: 15 mg Metoprolol Succinate (Toprol Xl) 25 mg PO DAILY [facility] Ondansetron HCl (Zofran Tab) 4 mg PO Q8 PRN PRN Reason: Nausea/Vomiting Pantoprazole Sodium (Protonix Ec Tab) 40 mg PO DAILY [facility] Last Admin: 02/14/19 08:46 Dose: 40 mg - Labs Labs: 02/15/19 04:50 02/15/19 04:50 - Constitutional Appears: Non-toxic, No Acute Distress - Respiratory Exam Respiratory Exam: Clear to Ausculation Bilateral, NORMAL BREATHING PATTERN - Cardiovascular Exam Cardiovascular Exam: REGULAR RHYTHM, +S1, +S2 - GI/Abdominal Exam GI & Abdominal Exam: Soft, Tenderness (left abdomen). absent: Distended, Firm, Guarding, Rigid, Rebound - Neurological Exam Neurological Exam: Alert, Awake Assessment and Plan - Assessment and Plan (Free Text) Assessment: 63M with abd pain, unknown etiology, resolved Plan: - continue diet - pain control - WBC improved - No current intervention Further recs discuss with Dr. Jose Chu, PGY3 <Juan Rivas - Last Filed: 02/15/19 11:26> Objective - Vital Signs/Intake and Output Vital Signs (last 24 hours): Temp Pulse Resp BP Pulse Ox 97.8 F 64 18 117/79 96 02/15/19 08:00 02/15/19 08:00 02/15/19 08:00 02/15/19 08:00 02/15/19 08:00 - Medications Medications: Current Medications Amlodipine Besylate (Norvasc) 10 mg PO DAILY [facility] Last Admin: 02/14/19 12:20 Dose: 10 mg Aspirin (Aspirin Chewable) 81 mg PO DAILY [facility] Last Admin: 02/15/19 08:32 Dose: 81 mg Chlorthalidone (Hygroton) 50 mg PO DAILY [facility] Last Admin: 02/15/19 08:33 Dose: 50 mg Clopidogrel Bisulfate (Plavix) 75 mg PO DAILY [facility] Last Admin: 02/15/19 08:34 Dose: 75 mg Dicyclomine HCl (Bentyl) 10 mg PO QID [facility] Last Admin: 02/15/19 08:33 Dose: 10 mg Docusate Sodium (Colace) 100 mg PO DAILY [facility] Last Admin: 02/15/19 08:33 Dose: 100 mg Potassium Chloride (Potassium Chloride 20 Meq/100 Ml) 100 mls @ 50 mls/hr IVPB Q2 [facility] Stop: 02/15/19 11:59 Last Admin: 02/15/19 08:51 Dose: 50 mls/hr Ketorolac Tromethamine (Toradol) 15 mg IVP Q6 PRN PRN Reason: Pain, severe (8-10) Last Admin: 02/14/19 08:47 Dose: 15 mg Metoprolol Succinate (Toprol Xl) 25 mg PO DAILY [facility] Ondansetron HCl (Zofran Tab) 4 mg PO Q8 PRN PRN Reason: Nausea/Vomiting Pantoprazole Sodium (Protonix Ec Tab) 40 mg PO DAILY [facility] Last Admin: 02/15/19 08:35 Dose: 40 mg - Labs Labs: 02/15/19 04:50 02/15/19 04:50 Assessment and Plan - Assessment and Plan (Free Text) Plan: Abdominal pain now tolerable. He may see me in the office for further evaluation and management.
[2019-02-15 08:22] VITALS: TEMP 97.8
[2019-02-15] MEDS: Pantoprazole 40 mg EC Tab PO SCH (08:35)
[2019-02-15] MEDS: Potassium Chloride 20 mEq 100 ML IVPB SCH ×2 (08:51→12:10)
[2019-02-15] MEDS ORDERED: Metoprolol Succinate 25 mg XL Tab PO SCH (09:00)
[2019-02-15 11:48] VITALS: BP 102/64; PULSE 69; O2SAT 97
== END 2019-02-15 15:40 | disposition home or self-care (01) | DRG 384 ==
LOC: H.ER 12:37 → H.ERHOLD 16:49 → H.TEL 21:32 → OBSVTOIN 02-14 14:22
PROVIDERS: ADMIT Internal Medicine; ATTEND Internal Medicine
DX: K27.3 Acute peptic ulcer, site unspecified, without hemorrhage or perforation (principal); R07.89 Other chest pain; E87.6 Hypokalemia; I25.10 Atherosclerotic heart disease of native coronary artery without angina pectoris; K57.90 Diverticulosis of intestine, part unspecified, without perforation or abscess without bleeding; K29.70 Gastritis, unspecified, without bleeding; I10 Essential (primary) hypertension; E78.5 Hyperlipidemia, unspecified; F17.210 Nicotine dependence, cigarettes, uncomplicated; Z95.5 Presence of coronary angioplasty implant and graft; Z79.02 Long term (current) use of antithrombotics/antiplatelets; Z86.73 Personal history of transient ischemic attack (TIA), and cerebral infarction without residual deficits; Z86.010 Personal history of colon polyps

== ENCOUNTER 2019-02-23 16:54 | Inpatient (IN) | payer MEDICARE ==
[2019-02-23] MEDS ORDERED: Sodium Chloride 0.9% 1,000 ML IV STA (17:33)
--- NOTE | 2019-02-23 17:36 | ED PDOC ---
HPI: General Adult Time Seen by Provider: 02/23/19 17:16 Chief Complaint (Nursing): Syncope Chief Complaint (Provider): Syncope History Per: Patient, Family () History/Exam Limitations: no limitations Onset/Duration Of Symptoms: Days (x2 with vomiting and diarrhea ), Other (ongoing abdominal pain) Additional Complaint(s): 63 year old male with a history of htn, high cholesterol and x4 stents placed 1 month ago presents to the ED for syncope today. Patient also reports abdominal pain that has been ongoing since colonoscopy and endoscopy x3 months ago. He has been having vomiting and diarrhea for the past 2 days. Today, patient fainted while in bathroom, woke up confused and is unable to recall how it happened. Patient states he was lightheaded before fainting, but is only feeling weak at present. He reports similar abdominal symptoms in the past. Patient denies any chest pain, shortness of breath, numbness, tingling, hematemesis or any other medical complaints. PMD: Dr. Thurston Engineering Lab Technician: Dr. Gross GI: Dr. Garcia Past Medical History Reviewed: Historical Data, Nursing Documentation, Vital Signs Vital Signs: Last Vital Signs Temp 99.0 F 02/23/19 17:06 Pulse 112 H 02/23/19 17:06 Resp 19 02/23/19 17:06 BP 109/72 02/23/19 17:06 Pulse Ox 98 02/23/19 17:06 - Medical History PMH: CAD, Colonic Polyps, CVA (x2), Gastritis, HTN - Surgical History Surgical History: Coronary Stent - Family History Family History: States: Unknown Family Hx - Living Arrangements Living Arrangements: With Family - Immunization History Hx Tetanus Toxoid Vaccination: No Hx Influenza Vaccination: Yes Hx Pneumococcal Vaccination: Yes - Home Medications Home Medications: Ambulatory Orders Medication Instructions Recorded Clopidogrel [Plavix] 75 mg PO DAILY 06/05/18 amLODIPine [Norvasc] 10 mg PO DAILY 06/05/18 Chlorthalidone [Hygroton] 50 mg PO DAILY 02/12/19 Omeprazole 40 mg PO DAILY 02/12/19 Ondansetron [Zofran Tab] 4 mg PO Q8 PRN 02/12/19 Dicyclomine [Bentyl] 10 mg PO QID #120 cap 02/15/19 - Allergies Allergies/Adverse Reactions: Allergies Allergy/AdvReac Type Severity Reaction Status Date / Time No Known Allergies Allergy Verified 02/12/19 12:53 Review of Systems ROS Statement: Except As Marked, All Systems Reviewed And Found Negative Cardiovascular: Negative for: Chest Pain Respiratory: Negative for: Shortness of Breath Gastrointestinal: Positive for: Nausea, Vomiting, Abdominal Pain, Diarrhea. Negative for: Hematemesis Neurological: Positive for: Weakness, Dizziness, Other (syncope). Negative for: Numbness Physical Exam - Reviewed Nursing Documentation Reviewed: Yes Vital Signs Reviewed: Yes - Physical Exam Appears: Positive for: No Acute Distress Head Exam: Positive for: ATRAUMATIC, NORMOCEPHALIC Skin: Positive for: Normal Color, Warm, Dry Eye Exam: Positive for: Normal appearance, EOMI, PERRL ENT: Positive for: Normal ENT Inspection Neck: Positive for: Normal, Painless ROM, Supple Cardiovascular/Chest: Positive for: Regular Rate, Rhythm. Negative for: Murmur Respiratory: Positive for: Normal Breath Sounds. Negative for: Respiratory Distress Gastrointestinal/Abdominal: Positive for: Normal Exam, Soft. Negative for: Tenderness Back: Positive for: Normal Inspection. Negative for: L CVA Tenderness, R CVA Tenderness Extremity: Positive for: Normal ROM (upper and lower). Negative for: Tenderness, Pedal Edema Neurological/Psych: Positive for: Awake, Alert, Oriented (x3). 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 Thurston. Tye. AAOx3. Will admit tele. No dizziness currently. Medical Decision Making Medical Decision Making: Time: 1731 Plan: --CT Head w/o contrast --EKG --CMP --Troponin --CBC --PTT --PT/INR --CXR --Pepcid CT abdomen and pelvis from 02/12/19: FINDINGS: LOWER THORAX: Unremarkable. LIVER: Hepatic steatosis. No focal masses. No intrahepatic bile duct dilatation or perihepatic ascites. GALLBLADDER AND BILE DUCTS: Unremarkable. PANCREAS: Unremarkable. No gross lesion or ductal dilatation. SPLEEN: Unremarkable. ADRENALS: Unremarkable. No mass. KIDNEYS AND URETERS: Unremarkable. No hydronephrosis. No solid mass. VASCULATURE: Unremarkable. No aortic aneurysm. Atherosclerotic calcification and mural plaque present. Findings are seen throughout the aorta which is non aneurysmal and extend into the iliac vessels. BOWEL: Unremarkable. No obstruction. No gross mural thickening. APPENDIX: A normal appendix is visualized in it's entirety. PERITONEUM: Unremarkable. No free fluid. No free air. LYMPH NODES: Unremarkable. No enlarged lymph nodes. BLADDER: Unremarkable. REPRODUCTIVE: Unremarkable. BONES: No acute fracture. OTHER FINDINGS: None. IMPRESSION: No significant or acute findings to account for/ related to the clinical presentation. Additional benign and/or incidental findings described above. Time: 1748 CXR: FINDINGS: LUNGS: The lungs are well inflated and clear. PLEURA: No pleural effusions or pneumothorax. CARDIOVASCULAR: There is mild cardiomegaly. No aortic atherosclerotic calcifications present. OSSEOUS STRUCTURES: Within normal limits for the patient's age. VISUALIZED UPPER ABDOMEN: Normal. OTHER FINDINGS: None. IMPRESSION: No active pulmonary disease. ScribeAttestation: Documented byJodie Pacheco, acting as a scribe for Nathan Akhtar MD. Provider ScribeAttestation: All medical record entries made by the Scribe were at my direction and personally dictated by me. I have reviewed the chart and agree that the record accurately reflects my personal performance of the history, physical exam, medical decision making, and the department course for this patient. I have also personally directed, reviewed, and agree with the discharge instructions and disposition. Disposition - Clinical Impression Clinical Impression: Syncope, Hypokalemia - Patient ED Disposition Is Patient to be Admitted: No Counseled Patient/Family Regarding: Studies Performed, Diagnosis - Disposition Disposition Time: 18:00 Condition: FAIR - Pt Status Changed To: Hospital Disposition Of: Observation - POA Present On Arrival: Falls Or Trauma
--- NOTE | 2019-02-23 17:52 | RAD ---
Date of service: 02/23/2019 HISTORY: dyspnea COMPARISON: 02/12/2019. FINDINGS: LUNGS: The lungs are well inflated and clear. PLEURA: No pleural effusions or pneumothorax. CARDIOVASCULAR: There is mild cardiomegaly. No aortic atherosclerotic calcifications present. OSSEOUS STRUCTURES: Within normal limits for the patient's age. VISUALIZED UPPER ABDOMEN: Normal. OTHER FINDINGS: None. IMPRESSION: No active pulmonary disease.
[2019-02-23 18:12] LABS: BASO # 0.1 K/uL (0.0-0.2); EOS # 0.2 K/uL (0.0-0.7); EOS % 1.9 % (0.0-4.0); HEMOGLOBIN 17.3 g/dL (12.0-18.0); LYMPH # 2.5 K/uL (1.0-4.3); LYMPH % 19.8 % (20.0-40.0); MEAN CELL VOLUME 89.4 fl (80.0-94.0); MEAN CORPUSCULAR HEMOGLOBIN 31.2 pg (27.0-31.0); MEAN CORPUSCULAR HGB CONC 34.9 g/dL (33.0-37.0); MEAN PLATELET VOLUME 8.2 fl (7.2-11.7); MONO # 0.8 K/uL (0.0-0.8); MONO % 6.7 % (0.0-10.0); NEUT # 8.9 K/uL (1.8-7.0); NEUT % 70.6 % (50.0-75.0); NRBC % 0.1 % (0.0-0.0); RBC 5.55 Mil/uL (4.40-5.90); RED CELL DISTRIBUTION WIDTH 13.8 % (11.5-14.5); WHITE BLOOD COUNT 12.6 K/uL (4.8-10.8)
[2019-02-23 18:19] LABS: INR 0.9; PROTHROMBIN TIME 10.6 Seconds (9.8-13.1)
[2019-02-23] MEDS ORDERED: Piperacillin/Tazobact 3.375 GM in Sodium Chloride 0.9% 100 ML IV STA (18:20)
[2019-02-23 18:22] LABS: PARTIAL THROMBOPLASTIN TIME 34.2 Seconds (25.6-37.1)
--- NOTE | 2019-02-23 18:38 | CT ---
Date of service: 02/23/2019 PROCEDURE: CT HEAD WITHOUT CONTRAST. HISTORY: headache COMPARISON: None available. TECHNIQUE: Axial computed tomography images were obtained through the head/brain without intravenous contrast. Radiation dose: Total exam DLP = 851.87 mGy-cm. This CT exam was performed using one or more of the following dose reduction techniques: Automated exposure control, adjustment of the mA and/or kV according to patient size, and/or use of iterative reconstruction technique. FINDINGS: HEMORRHAGE: No intracranial hemorrhage. BRAIN: There are mild chronic microangiopathic change. There are small chronic lacunar infarctions in the basal ganglia and thalami. There is no mass, mass effect or abnormal extra-axial fluid collection. There is no territorial infarction. The midline sagittal structures are normal.There are coarse atherosclerotic calcifications in the cavernous carotid arteries. VENTRICLES: There is mild age-related global parenchymal volume loss and proportionate enlargement of the ventricles and cortical sulci. CALVARIUM: There is no calvarial fracture or extracranial soft tissue swelling. PARANASAL SINUSES: Predominantly clear. MASTOID AIR CELLS: Predominantly clear. OTHER FINDINGS: None. IMPRESSION: No acute intracranial abnormality. Mild chronic microangiopathic changes and mild age-related global parenchymal volume loss. Small chronic lacunar infarctions in the basal ganglia and thalami.
[2019-02-23 18:39] LABS: ALB/GLOB RATIO 1.3 (1.0-2.1); ALBUMIN 4.5 g/dL (3.5-5.0); ALT/SGPT 63 U/L (21-72); AST/SGOT 42 U/L (17-59); BLOOD UREA NITROGEN 15 mg/dl (9-20); CALCIUM 9.4 mg/dL (8.4-10.2); GFR NON-AFRICAN AMERICAN > 60
[2019-02-23] MEDS ORDERED: Potassium Chloride 20 mEq ER Tab PO STA (18:53)
[2019-02-23] MEDS ORDERED: Potassium Chloride 20 mEq ER Tab PO ONE (19:48)
[2019-02-24 06:03] LABS: HEMOGLOBIN 15.9 g/dL (12.0-18.0); MEAN CELL VOLUME 89.7 fl (80.0-94.0); MEAN CORPUSCULAR HEMOGLOBIN 31.7 pg (27.0-31.0); MEAN CORPUSCULAR HGB CONC 35.4 g/dL (33.0-37.0); RBC 5.01 Mil/uL (4.40-5.90); RED CELL DISTRIBUTION WIDTH 13.8 % (11.5-14.5); WHITE BLOOD COUNT 8.8 K/uL (4.8-10.8)
[2019-02-24 06:37] LABS: ALB/GLOB RATIO 1.3 (1.0-2.1); ALBUMIN 3.7 g/dL (3.5-5.0); ALT/SGPT 49 U/L (21-72); AST/SGOT 30 U/L (17-59); BLOOD UREA NITROGEN 14 mg/dl (9-20); CALCIUM 8.7 mg/dL (8.4-10.2); GFR NON-AFRICAN AMERICAN > 60
[2019-02-24] MEDS ORDERED: Potassium Chloride 20 mEq ER Tab PO ONE (07:57)
[2019-02-24] MEDS: Potassium CL 10 MEQ/50 ML 50 ML IVPB SCH ×4 (08:39→15:08)
--- NOTE | 2019-02-24 09:10 | CP.PCM.CON ---
History of Present Illness - History of Present Illness History of Present Illness: 63 year old male presents to the ED for syncope today, this is the first time. Patient also reports abdominal pain that has been ongoing since colonoscopy and endoscopy x3 months ago. He has been having vomiting and diarrhea for the past 2 days. The patient fainted while in bathroom, woke up confused and is unable to recall how it happened. Patient states he was lightheaded before fainting. He reports similar abdominal symptoms in the past. Patient denies any chest pain, shortness of breath, numbness, tingling, hematemesis or any other medical complaints. EKG: NSR Troponin: neg PMH: Hypertension Hyperlipidemia Cardiac stents Past Patient History - Infectious Disease Hx of Infectious Diseases: None - Past Medical History & Family History Past Medical History?: Yes - Past Social History Smoking Status: Light Smoker < 10 Cigarettes Daily - CARDIAC Hx Cardiac Disorders: Yes Hx Hypertension: Yes - PULMONARY Hx Respiratory Disorders: No - NEUROLOGICAL Hx Neurological Disorder: No - HEENT Hx HEENT Problems: No - RENAL Hx Chronic Kidney Disease: No - ENDOCRINE/METABOLIC Hx Endocrine Disorders: No - HEMATOLOGICAL/ONCOLOGICAL Hx Blood Disorders: No - INTEGUMENTARY Hx Dermatological Problems: No - MUSCULOSKELETAL/RHEUMATOLOGICAL Hx Musculoskeletal Disorders: No Hx Falls: Yes - GASTROINTESTINAL Hx Gastrointestinal Disorders: Yes Hx Gastritis: Yes - GENITOURINARY/GYNECOLOGICAL Hx Genitourinary Disorders: No - PSYCHIATRIC Hx Psychophysiologic Disorder: No Hx Substance Use: No - SURGICAL HISTORY Hx Surgeries: Yes Hx Coronary Stent: Yes - ANESTHESIA Hx Anesthesia: Yes Hx Anesthesia Reactions: No Meds Allergies/Adverse Reactions: Allergies Allergy/AdvReac Type Severity Reaction Status Date / Time No Known Allergies Allergy Verified 02/12/19 12:53 - Medications Medications: Current Medications Enoxaparin Sodium (Lovenox) 40 mg SC DAILY [facility]; Protocol Potassium Chloride (Potassium Cl 10meq/50ml Sterile Water) 50 mls @ 50 mls/hr IVPB Q1 [facility] Stop: 02/24/19 11:59 Last Admin: 02/24/19 08:39 Dose: 50 mls/hr Results - Vital Signs Recent Vital Signs: Last Vital Signs Temp 97.7 F 02/24/19 08:45 Pulse 72 02/24/19 08:45 Resp 20 02/24/19 08:45 BP 115/75 02/24/19 08:45 Pulse Ox 95 02/24/19 08:45 - Labs Result Diagrams: 02/24/19 04:25 02/24/19 04:25 Labs: Laboratory Results - last 24 hr 02/23/19 02/23/19 02/23/19 18:00 18:00 18:00 WBC 12.6 H RBC 5.55 Hgb 17.3 Hct 49.6 MCV 89.4 D MCH 31.2 H MCHC 34.9 RDW 13.8 Plt Count 339 MPV 8.2 Neut % (Auto) 70.6 Lymph % (Auto) 19.8 L [place] % (Auto) 6.7 Eos % (Auto) 1.9 Baso % (Auto) 1.0 Neut # (Auto) 8.9 H Lymph # (Auto) 2.5 [place] # (Auto) 0.8 Eos # (Auto) 0.2 Baso # (Auto) 0.1 PT 10.6 INR 0.9 APTT 34.2 Sodium 135 Potassium 3.0 L Chloride 93 L Carbon Dioxide 27 Anion Gap 18 BUN 15 Creatinine 1.1 Est GFR ( Amer) > 60 Est GFR (Non-Af Amer) > 60 Random Glucose 121 H Calcium 9.4 Total Bilirubin 0.5 AST 42 ALT 63 Alkaline Phosphatase 95 Troponin I < 0.0120 Total Protein 7.9 Albumin 4.5 Globulin 3.4 Albumin/Globulin Ratio 1.3 02/24/19 02/24/19 04:25 04:25 WBC 8.8 RBC 5.01 Hgb 15.9 Hct 45.0 MCV 89.7 MCH 31.7 H MCHC 35.4 RDW 13.8 Plt Count 264 MPV Neut % (Auto) Lymph % (Auto) [place] % (Auto) Eos % (Auto) Baso % (Auto) Neut # (Auto) Lymph # (Auto) [place] # (Auto) Eos # (Auto) Baso # (Auto) PT INR APTT Sodium 137 Potassium 2.9 L Chloride 97 L Carbon Dioxide 28 Anion Gap 15 BUN 14 Creatinine 1.0 Est GFR ( Amer) > 60 Est GFR (Non-Af Amer) > 60 Random Glucose 100 Calcium 8.7 Total Bilirubin 0.7 AST 30 ALT 49 Alkaline Phosphatase 74 Troponin I Total Protein 6.5 Albumin 3.7 Globulin 2.8 Albumin/Globulin Ratio 1.3 Assessment & Plan (1) Syncope Assessment and Plan: Syncope does not appear to be cardiac in origin most likely Vasovagal Status: Acute (2) Hypokalemia Status: Acute (3) Abdominal pain Status: Acute (4) HTN (hypertension) Status: Acute (5) History of coronary artery disease Status: Acute
--- NOTE | 2019-02-24 09:27 | CARD ---
APPROVED REPORT Date of service: 02/23/2019 EKG Measurement Heart [id number] <Conclusion> Normal sinus rhythm Normal ECG
[2019-02-24] MEDS ORDERED: Iohexol 240 (50 ml) PO ONE (09:32)
[2019-02-24] MEDS: Enoxaparin 40 mg Syringe SC SCH (10:41)
[2019-02-24] MEDS ORDERED: Sodium Chloride 0.9% 50 ML IV ONE (13:34)
[2019-02-24] MEDS ORDERED: Iohexol 300 100 ML IJ ONE (13:34)
--- NOTE | 2019-02-24 15:03 | CT ---
Date of service: 02/24/2019 PROCEDURE: CT Abdomen and Pelvis with contrast HISTORY: continued abd pain COMPARISON: 02/12/2019 CT scan TECHNIQUE: Contrast dose: 95 milliliters Radiation dose: Total exam DLP = 956.37 mGy-cm. This CT exam was performed using one or more of the following dose reduction techniques: Automated exposure control, adjustment of the mA and/or kV according to patient size, and/or use of iterative reconstruction technique. FINDINGS: LOWER THORAX: Lung go are clear. There is a stable 3 millimeter aggregate lung nodule in the subpleural region of the right lower lobe on axial image 3 series 5 and seen on the prior study. Small amount of calcification in the nodule is not excluded. No further imaging workup would be excluded in a low risk patient of this age utilizing recent Fleischner guidelines. Visualized distal esophagus is unremarkable. Visualized stomach is decompressed and normal in outline. A minimal amount of nonspecific previously noted pericardial fluid is noted. LIVER: Liver is diffusely fatty infiltrated without evidence of focal mass or intrahepatic ductal dilatation. GALLBLADDER AND BILE DUCTS: Unremarkable. PANCREAS: Unremarkable. No gross lesion or ductal dilatation. SPLEEN: Unremarkable. ADRENALS: Unremarkable. No mass. KIDNEYS AND URETERS: Unremarkable. No hydronephrosis. No solid mass. VASCULATURE: Unremarkable. No aortic aneurysm. Mild aortic atherosclerotic calcification or mural plaque present. BOWEL: Sigmoid colon is decompressed limiting evaluation for wall thickening. No appreciable new pericolonic inflammatory change or wall thickening is seen. Small bowel is unremarkable. APPENDIX: Normal appendix. PERITONEUM: No ascites is seen. No mesenteric thickening is noted. LYMPH NODES: Unremarkable. No enlarged lymph nodes. BLADDER: Decompressed but otherwise normal in outline. REPRODUCTIVE: Unremarkable. BONES: Mild degenerative changes are seen in the spine. OTHER FINDINGS: No inguinal hernias are noted. IMPRESSION: No appreciable acute inflammatory process in the abdomen or pelvis. Stable appearance of the abdomen including fatty infiltration of the liver. No evidence of cholecystitis, pancreatitis, or colitis.
--- NOTE | 2019-02-24 15:23 | CP.PCM.CON ---
History of Present Illness - History of Present Illness History of Present Illness: Neurology Consultation Note: Consult requested by Dr. Thurston Mr. Vega is a 63-year-old man with a past medical history of HTN, CAD, pr evious stroke, who had a colonoscopy 3 months ago and states he has had chronic diarrhea and abdominal pain since then. He was in the bathroom yesterday, felt dizzy and lost consciousness. He did not fully recall the events that transpired. Today, he is at his baseline with no focal deficits. CT scan of the head did not show any concerning findings, but there were some chronic ischemic changes noted. Review of Systems - Constitutional Constitutional: As Per HPI - EENT Eyes: absent: As Per HPI, Blind Spots, Blurred Vision, Change in Vision, Decreased Night Vision, Diplopia, Discharge, Dry Eye, Exophthalmos, Floaters, Irritation, Itchy Eyes, Loss of Peripheral Vision, Pain, Photophobia, Requires Corrective Lenses, Sees Flashes, Spots in Vision, Tunnel Vision, Other Visual Disturbances, Loss of Vision, Other Ears: absent: As Per HPI, Decreased Hearing, Ear Discharge, Ear Pain, Tinnitus, Abnormal Hearing, Disequilibrium, Dizziness, Other Nose/Mouth/Throat: absent: As Per HPI, Epistaxis, Nasal Congestion, Nasal Discharge, Nasal Obstruction, Nasal Trauma, Nose Pain, Post Nasal Drip, Sinus Pain, Sinus Pressure, Bleeding Gums, Change in Voice, Dental Pain, Dry Mouth, Dysphagia, Halitosis, Hoarsness, Lip Swelling, Mouth Lesions, Mouth Pain, Odynophagia, Sore Throat, Throat Swelling, Tongue Swelling, Facial Pain, Neck Pain, Neck Mass, Other - Cardiovascular Cardiovascular: absent: As Per HPI, Acrocyanosis, Chest Pain, Chest Pain at Rest, Chest Pain with Activity, Claudication, Diaphoresis, Dyspnea, Dyspnea on Exertion, Edema, Irregular Heart Rhythm, Pain Radiating to Arm/Neck/Jaw, Leg Edema, Leg Ulcers, Lightheadedness, Orthopnea, Palpitations, Paroxysmal Nocturnal Dyspnea, Pedal Edema, Radiating Pain, Rapid Heart Rate, Slow Heart Rate, Syncope, Other - Respiratory Respiratory: absent: As Per HPI, Cough, Dyspnea, Hemoptysis, Dyspnea on Exer tion, Wheezing, Snoring, Stridor, Pain on Inspiration, Chest Congestion, Excessive Mucous Production, Change in Mucous Color, Pain with Coughing, Other - Gastrointestinal Gastrointestinal: As Per HPI - Musculoskeletal Musculoskeletal: absent: As Per HPI, Abnormal Gait, Arthralgias, Atrophy, Back Pain, Deformity, Joint Swelling, Limited Range of Motion, Loss of Height, Muscle Cramps, Muscle Weakness, Myalgias, Neck Pain, Numbness, Radiating Pain into Limb, Stiffness, Tingling, Other - Integumentary Integumentary: absent: As Per HPI, Acne, Alopecia, Bleeding Lesions, Change in H air, Change in Nails, Change in Pigmentation, Changing Lesions, Dry Skin, Erythema, Furuncle, Hirsutism, Lesions, New Lesions, Non-Healing Lesions, Photosensitivity, Pruritus, Rash, Skin Pain, Skin Ulcer, Sores, Striae, Swelling, Unusual Bruising, Wounds, Jaundice, Other - Neurological Neurological: As Per HPI - Psychiatric Psychiatric: absent: As Per HPI, Abnormal Sleep Pattern, Anhedonia, Anxiety, Auditory Hallucinations, Behavioral Changes, Change in Appetite, Change in Libido, Confusion, Depression, Difficulty Concentrating, Hallucinations, Homicidal Ideation, Hopelessness, Irritability, Memory Loss, Mood Swings, Panic Attacks, Paranoia, Suicidal Ideation, Visual Hallucinations, Tactile Hallucinations, Other - Endocrine Endocrine: absent: As Per HPI, Change in Body Appearance, Change in Libido, Cold Intolorance, Deepening of Voice, Excessive Sweating, Fatigue, Flushing, Heat Intolorance, Increase in Ring/Shoe/Hat Size, Palpitations, Polydipsia, Polyphagia, Polyuria, Other - Hematologic/Lymphatic Hematologic: absent: As Per HPI, Easy Bleeding, Easy Bruising, Lymphadenopathy, Other Past Patient History - Infectious Disease Hx of Infectious Diseases: None - Past Medical History & Family History Past Medical History?: Yes - Past Social History Smoking Status: Light Smoker < 10 Cigarettes Daily - CARDIAC Hx Cardiac Disorders: Yes Hx Hypertension: Yes - PULMONARY Hx Respiratory Disorders: No - NEUROLOGICAL Hx Neurological Disorder: No - HEENT Hx HEENT Problems: No - RENAL Hx Chronic Kidney Disease: No - ENDOCRINE/METABOLIC Hx Endocrine Disorders: No - HEMATOLOGICAL/ONCOLOGICAL Hx Blood Disorders: No - INTEGUMENTARY Hx Dermatological Problems: No - MUSCULOSKELETAL/RHEUMATOLOGICAL Hx Musculoskeletal Disorders: No Hx Falls: Yes - GASTROINTESTINAL Hx Gastrointestinal Disorders: Yes Hx Gastritis: Yes - GENITOURINARY/GYNECOLOGICAL Hx Genitourinary Disorders: No - PSYCHIATRIC Hx Psychophysiologic Disorder: No Hx Substance Use: No - SURGICAL HISTORY Hx Surgeries: Yes Hx Coronary Stent: Yes - ANESTHESIA Hx Anesthesia: Yes Hx Anesthesia Reactions: No Meds Allergies/Adverse Reactions: Allergies Allergy/AdvReac Type Severity Reaction Status Date / Time No Known Allergies Allergy Verified 02/12/19 12:53 - Medications Medications: Current Medications Amlodipine Besylate (Norvasc) 10 mg PO DAILY [facility] Clopidogrel Bisulfate (Plavix) 75 mg PO DAILY [facility] Enoxaparin Sodium (Lovenox) 40 mg SC DAILY [facility]; Protocol Last Admin: 02/24/19 10:41 Dose: 40 mg Famotidine (Pepcid) 20 mg PO BID [facility] Ondansetron HCl (Zofran Tab) 4 mg PO Q8 PRN PRN Reason: Nausea/Vomiting Pantoprazole Sodium (Protonix Ec Tab) 40 mg PO DAILY [facility] Physical Exam - Constitutional Appears: Well - Head Exam Head Exam: ATRAUMATIC, NORMAL INSPECTION, NORMOCEPHALIC - Eye Exam Eye Exam: EOMI, Normal appearance, PERRL Pupil Exam: NORMAL ACCOMODATION, PERRL - ENT Exam ENT Exam: Mucous Membranes Moist, Normal Exam - Neck Exam Neck exam: Positive for: Normal Inspection - Respiratory Exam Respiratory Exam: Clear to Auscultation Bilateral, NORMAL BREATHING PATTERN - Cardiovascular Exam Cardiovascular Exam: REGULAR RHYTHM - GI/Abdominal Exam GI & Abdominal Exam: Normal Bowel Sounds, Soft. absent: Tenderness - Extremities Exam Extremities exam: Positive for: normal inspection - Back Exam Back exam: NORMAL INSPECTION - Neurological Exam Neurological exam: Alert, CN II-XII Intact, Normal Gait, Oriented x3, Reflexes Normal - Psychiatric Exam Psychiatric exam: Normal Affect, Normal Mood - Skin Skin Exam: Dry, Intact, Normal Color, Warm Results - Vital Signs Recent Vital Signs: Last Vital Signs Temp 98.4 F 02/24/19 13:50 Pulse 68 02/24/19 13:50 Resp 18 02/24/19 13:50 BP 121/76 02/24/19 13:50 Pulse Ox 97 02/24/19 13:50 - Labs Result Diagrams: 02/24/19 04:25 02/24/19 04:25 Labs: Laboratory Results - last 24 hr 02/23/19 02/23/19 02/23/19 18:00 18:00 18:00 WBC 12.6 H RBC 5.55 Hgb 17.3 Hct 49.6 MCV 89.4 D MCH 31.2 H MCHC 34.9 RDW 13.8 Plt Count 339 MPV 8.2 Neut % (Auto) 70.6 Lymph % (Auto) 19.8 L [place] % (Auto) 6.7 Eos % (Auto) 1.9 Baso % (Auto) 1.0 Neut # (Auto) 8.9 H Lymph # (Auto) 2.5 [place] # (Auto) 0.8 Eos # (Auto) 0.2 Baso # (Auto) 0.1 PT 10.6 INR 0.9 APTT 34.2 Sodium 135 Potassium 3.0 L Chloride 93 L Carbon Dioxide 27 Anion Gap 18 BUN 15 Creatinine 1.1 Est GFR ( Amer) > 60 Est GFR (Non-Af Amer) > 60 Random Glucose 121 H Calcium 9.4 Total Bilirubin 0.5 AST 42 ALT 63 Alkaline Phosphatase 95 Troponin I < 0.0120 Total Protein 7.9 Albumin 4.5 Globulin 3.4 Albumin/Globulin Ratio 1.3 02/24/19 02/24/19 04:25 04:25 WBC 8.8 RBC 5.01 Hgb 15.9 Hct 45.0 MCV 89.7 MCH 31.7 H MCHC 35.4 RDW 13.8 Plt Count 264 MPV Neut % (Auto) Lymph % (Auto) [place] % (Auto) Eos % (Auto) Baso % (Auto) Neut # (Auto) Lymph # (Auto) [place] # (Auto) Eos # (Auto) Baso # (Auto) PT INR APTT Sodium 137 Potassium 2.9 L Chloride 97 L Carbon Dioxide 28 Anion Gap 15 BUN 14 Creatinine 1.0 Est GFR ( Amer) > 60 Est GFR (Non-Af Amer) > 60 Random Glucose 100 Calcium 8.7 Total Bilirubin 0.7 AST 30 ALT 49 Alkaline Phosphatase 74 Troponin I Total Protein 6.5 Albumin 3.7 Globulin 2.8 Albumin/Globulin Ratio 1.3 Assessment & Plan (1) Syncope Assessment and Plan: Could be due to vaso-vagal, or neurocardiogenic reasons. No focal deficits on exam, CT head is not concerning. A CTA of the head/neck can be obtained to rule out VBI and an EEG can be done to rule out seizure. Both of these differentials are unlikely considering the history. Thank you for this consultation. Status: Acute
--- NOTE | 2019-02-24 22:57 | HP ---
CHIEF COMPLAINT: Syncope. HISTORY OF PRESENT ILLNESS: This is a 63-year-old male known case of CHF, irritable bowel syndrome, hypertension, dyspepsia, subacute to chronic abdominal pain for last 3 to 4 months, atherosclerotic heart disease, and history of CVA, who was in the bathroom and suddenly passed out and woke up confused and was not able to recall the events so the patient was brought to emergency room and was admitted for further management. REVIEW OF SYSTEMS: Positive for episode of passing out. Review of systems otherwise is negative for headache, dizziness, syncope, loss of consciousness, chest pain, shortness of breath, nausea, vomiting, diarrhea, constipation, any new joint or extremity pain. Review of system of all other organ system is unremarkable. PAST MEDICAL HISTORY: Significant for hypertension, congestive heart failure, elevated cholesterol, obesity, history of CVA. PAST SURGICAL HISTORY: Remarkable for cardiac stent. PERSONAL HISTORY: The patient is currently nonsmoker, nondrinker. No substance abuse. MEDICATIONS: The patient is on Plavix, Norvasc, chlorthalidone, omeprazole, Zofran, and Bentyl. ALLERGIES: THE PATIENT IS NOT ALLERGIC TO ANY MEDICATIONS. FAMILY HISTORY: Noncontributory. PHYSICAL EXAMINATION: GENERAL: Well-built, well-nourished 63-year-old male, in no acute distress. VITAL SIGNS: Temperature 97.6, pulse 70, respirations 18, blood pressure 109/73. HEENT: Pupils reacting to light. No JVD. No thyromegaly. No lymphadenopathy. No nystagmus. Normocephalic, atraumatic skull. HEART: S1 and S2, normal and regular. No significant murmur, gallop, or rub is heard. LUNGS: Shows good bilateral air exchange. No rales or rhonchi. ABDOMEN: Soft, nontender. No organomegaly. No fluid. Bowel sounds are present and normal. EXTREMITIES: No edema. No calf swelling. No tenderness. No acute ischemia. CENTRAL NERVOUS SYSTEM: The patient is alert, awake, oriented x3. There is no sign of any acute gross focal motor or sensory neurological deficits. DIAGNOSTIC DATA: Available diagnostic data reviewed. Telemetry monitoring does not show significant arrhythmias. WBC 8.8, it was 12.6 yesterday. Hemoglobin 15.9, hematocrit 45, platelets 264. Sodium 139, potassium is 2.9, which was 3 yesterday and was documented, but still remained low, chloride 97, bicarbonate 28, BUN 14, creatinine 1. SMA-12 is unremarkable. CAT scan of head was unremarkable. Chest x-ray was unremarkable. EKG showed normal sinus rhythm without any acute ST-T changes. ADMITTING IMPRESSION: Syncope, hypertension, elevated cholesterol, obesity, history of cerebrovascular accident. PLAN: As ordered. Case and plan discussed with the patient. Elieser Thurston MD
[2019-02-25 06:33] LABS: HEMOGLOBIN 15.4 g/dL (12.0-18.0); MEAN CELL VOLUME 90.8 fl (80.0-94.0); MEAN CORPUSCULAR HEMOGLOBIN 31.4 pg (27.0-31.0); MEAN CORPUSCULAR HGB CONC 34.6 g/dL (33.0-37.0); RBC 4.92 Mil/uL (4.40-5.90); RED CELL DISTRIBUTION WIDTH 13.9 % (11.5-14.5)
[2019-02-25 06:48] LABS: ALB/GLOB RATIO 1.3 (1.0-2.1); ALBUMIN 3.7 g/dL (3.5-5.0); ALT/SGPT 54 U/L (21-72); AST/SGOT 24 U/L (17-59); BLOOD UREA NITROGEN 13 mg/dl (9-20); CALCIUM 8.8 mg/dL (8.4-10.2); GFR NON-AFRICAN AMERICAN > 60
[2019-02-25] MEDS: Enoxaparin 40 mg Syringe SC SCH (08:35)
[2019-02-25] MEDS: Pantoprazole 40 mg EC Tab PO SCH (08:35)
--- NOTE | 2019-02-25 11:25 | CP.PCM.CON ---
<Arnel Lynch - Last Filed: 02/25/19 11:21> History of Present Illness - History of Present Illness History of Present Illness: Surgery Consult Note- Dr. Cadena Reason for Consult: Chronic ABD pain s/p Colonoscopy 63M pmhx significant for HTN, CAD, CVA colonoscopy 3 months ago presents to [facility] ED w/ first time syncopal episode upon admission pt potassium found to be 2.7. Surgery was consulted for abdomina pain w/ associated diarrhea since the colonoscopy. Patient states Diane-umbilical to left upper quadrant abdominal pain waxes and wanes. There has not been any significant change recently in abd pain. Denies recent foreign travels, fevers chills, changes in urinary habits Review of Systems - Review of Systems All systems: reviewed and no additional remarkable complaints except - Constitutional Constitutional: As Per HPI Past Patient History - Infectious Disease Hx of Infectious Diseases: None - Past Medical History & Family History Past Medical History?: Yes - Past Social History Smoking Status: Light Smoker < 10 Cigarettes Daily - CARDIAC Hx Cardiac Disorders: Yes Hx Hypertension: Yes - PULMONARY Hx Respiratory Disorders: No - NEUROLOGICAL Hx Neurological Disorder: No - HEENT Hx HEENT Problems: No - RENAL Hx Chronic Kidney Disease: No - ENDOCRINE/METABOLIC Hx Endocrine Disorders: No - HEMATOLOGICAL/ONCOLOGICAL Hx Blood Disorders: No - INTEGUMENTARY Hx Dermatological Problems: No - MUSCULOSKELETAL/RHEUMATOLOGICAL Hx Musculoskeletal Disorders: No Hx Falls: Yes - GASTROINTESTINAL Hx Gastrointestinal Disorders: Yes Hx Gastritis: Yes - GENITOURINARY/GYNECOLOGICAL Hx Genitourinary Disorders: No - PSYCHIATRIC Hx Psychophysiologic Disorder: No Hx Substance Use: No - SURGICAL HISTORY Hx Surgeries: Yes Hx Coronary Stent: Yes - ANESTHESIA Hx Anesthesia: Yes Hx Anesthesia Reactions: No Meds Allergies/Adverse Reactions: Allergies Allergy/AdvReac Type Severity Reaction Status Date / Time No Known Allergies Allergy Verified 02/12/19 12:53 - Medications Medications: Current Medications Amlodipine Besylate (Norvasc) 10 mg PO DAILY [facility] Last Admin: 02/25/19 08:34 Dose: 10 mg Clopidogrel Bisulfate (Plavix) 75 mg PO DAILY [facility] Last Admin: 02/25/19 08:35 Dose: 75 mg Enoxaparin Sodium (Lovenox) 40 mg SC DAILY [facility]; Protocol Last Admin: 02/25/19 08:35 Dose: 40 mg Famotidine (Pepcid) 20 mg PO BID [facility] Last Admin: 02/25/19 08:34 Dose: 20 mg Ondansetron HCl (Zofran Tab) 4 mg PO Q8 PRN PRN Reason: Nausea/Vomiting Pantoprazole Sodium (Protonix Ec Tab) 40 mg PO DAILY [facility] Last Admin: 02/25/19 08:35 Dose: 40 mg Physical Exam - Constitutional Appears: Non-toxic, No Acute Distress, Unkempt - Head Exam Head Exam: ATRAUMATIC - Eye Exam Eye Exam: EOMI. absent: Scleral icterus - ENT Exam ENT Exam: Mucous Membranes Moist - Respiratory Exam Respiratory Exam: NORMAL BREATHING PATTERN. absent: Accessory Muscle Use, Respiratory Distress - Cardiovascular Exam Cardiovascular Exam: REGULAR RHYTHM. absent: Bradycardia, Tachycardia - GI/Abdominal Exam GI & Abdominal Exam: Distended (mild distention, pateint states baseline), Soft, Tenderness (tenderness in LUQ). absent: Firm, Guarding, Rebound, Rigid - Neurological Exam Neurological exam: Alert, Oriented x3 - Skin Skin Exam: Intact, Warm Results - Vital Signs Recent Vital Signs: Last Vital Signs Temp 98.2 F 02/25/19 08:31 Pulse 81 02/25/19 09:00 Resp 20 02/25/19 08:31 BP 126/75 02/25/19 08:34 Pulse Ox 96 02/25/19 08:31 - Labs Result Diagrams: 02/25/19 04:30 02/25/19 04:30 Labs: Laboratory Results - last 24 hr 02/25/19 02/25/19 04:30 04:30 WBC 7.0 RBC 4.92 Hgb 15.4 Hct 44.7 MCV 90.8 MCH 31.4 H MCHC 34.6 RDW 13.9 Plt Count 258 Sodium 136 Potassium 2.9 L Chloride 97 L Carbon Dioxide 30 Anion Gap 12 BUN 13 Creatinine 0.9 Est GFR ( Amer) > 60 Est GFR (Non-Af Amer) > 60 Random Glucose 101 Calcium 8.8 Total Bilirubin 0.3 AST 24 ALT 54 Alkaline Phosphatase 68 Total Protein 6.5 Albumin 3.7 Globulin 2.8 Albumin/Globulin Ratio 1.3 Assessment & Plan - Assessment and Plan (Free Text) Assessment: 63M admitted for syncopal episode now w/ chronic abdominal pain s/p colonoscopy 3 months ago Plan: - CT scan reviewed shows no acute pathology, no free air or perforation - continue work up for syncope - no acute surgical intervention at this time - d/w Dr. Cadena Surgical attending PGY2 <Qamar Daigle - Last Filed: 02/26/19 09:13> Meds - Medications Medications: Current Medications Amlodipine Besylate (Norvasc) 10 mg PO DAILY [facility] Last Admin: 02/25/19 08:34 Dose: 10 mg Clopidogrel Bisulfate (Plavix) 75 mg PO DAILY [facility] Last Admin: 02/25/19 08:35 Dose: 75 mg Enoxaparin Sodium (Lovenox) 40 mg SC DAILY [facility]; Protocol Last Admin: 02/25/19 08:35 Dose: 40 mg Famotidine (Pepcid) 20 mg PO BID [facility] Last Admin: 02/25/19 16:29 Dose: 20 mg Ondansetron HCl (Zofran Tab) 4 mg PO Q8 PRN PRN Reason: Nausea/Vomiting Pantoprazole Sodium (Protonix Ec Tab) 40 mg PO DAILY [facility] Last Admin: 02/25/19 08:35 Dose: 40 mg Results - Vital Signs Recent Vital Signs: Last Vital Signs Temp 98.2 F 02/26/19 08:16 Pulse 73 02/26/19 08:16 Resp 20 02/26/19 08:16 BP 114/74 02/26/19 08:16 Pulse Ox 96 02/26/19 08:16 - Labs Result Diagrams: 02/25/19 04:30 02/25/19 04:30 Assessment & Plan - Assessment and Plan (Free Text) Plan: All medical record entries made by the resident were at my direction. I have reviewed the chart and agree that the record accurately reflects my personal performance of the history, physical exam, and medical decision making CT abdomen shows no obvious pathology.
--- NOTE | 2019-02-26 08:17 | PN ---
DATE: 02/25/2019 SUBJECTIVE: The patient is seen and examined. Interim events noted. Consults noted and appreciated. Neurology followup, consult and intervention noted and appreciated. PHYSICAL EXAMINATION: GENERAL: The patient is in no acute distress. VITAL SIGNS: Stable. HEART: S1 and S2. Normal and regular. LUNGS: Good bilateral air exchange. ABDOMEN: Soft, nontender. EXTREMITIES: No edema, no calf swelling, no tenderness, no acute ischemia. CENTRAL NERVOUS SYSTEM: Exam is essentially unchanged. DIAGNOSTIC DATA: Available diagnostic data reviewed. ASSESSMENT AND PLAN: Overall, the patient is medically stable. Telemetry monitoring does not show arrhythmia. Elieser Thurston MD
[2019-02-26] MEDS: Enoxaparin 40 mg Syringe SC SCH (09:13)
[2019-02-26] MEDS: Pantoprazole 40 mg EC Tab PO SCH (09:15)
[2019-02-26] MEDS ORDERED: Potassium Chloride 20 mEq/15 ml LIQ UD PO ONE (09:52)
--- NOTE | 2019-02-26 11:01 | CP.PCM.PN ---
Subjective - Date & Time of Evaluation Date of Evaluation: 02/26/19 Time of Evaluation: 10:58 - Subjective Subjective: Neuro Follow-Up Note: Mr. Vega was evaluated this morning at bedside. He states that he feels better than before. Still c/o some abd discomfort. Has not had any recurrent syncopal episodes. Denies h/a, dizziness, visual change, chest pain, palpitations, sob, cough, n/v/d, paresthesias, fever/chills. Objective - Vital Signs/Intake and Output Vital Signs (last 24 hours): Temp Pulse Resp BP Pulse Ox 98.2 F 73 20 114/74 96 02/26/19 08:16 02/26/19 09:14 02/26/19 08:16 02/26/19 09:14 02/26/19 08:16 - Medications Medications: Current Medications Amlodipine Besylate (Norvasc) 10 mg PO DAILY [facility] Last Admin: 02/26/19 09:14 Dose: 10 mg Clopidogrel Bisulfate (Plavix) 75 mg PO DAILY [facility] Last Admin: 02/26/19 09:15 Dose: 75 mg Enoxaparin Sodium (Lovenox) 40 mg SC DAILY [facility]; Protocol Last Admin: 02/26/19 09:13 Dose: 40 mg Famotidine (Pepcid) 20 mg PO BID [facility] Last Admin: 02/26/19 09:14 Dose: 20 mg Ondansetron HCl (Zofran Tab) 4 mg PO Q8 PRN PRN Reason: Nausea/Vomiting Pantoprazole Sodium (Protonix Ec Tab) 40 mg PO DAILY [facility] Last Admin: 02/26/19 09:15 Dose: 40 mg - Labs Labs: 02/25/19 04:30 02/25/19 04:30 PT 10.6 Seconds (9.8-13.1) 02/23/19 18:00 INR 0.9 02/23/19 18:00 APTT 34.2 Seconds (25.6-37.1) 02/23/19 18:00 - Constitutional Appears: Well, Non-toxic, No Acute Distress - Head Exam Head Exam: ATRAUMATIC, NORMAL INSPECTION, NORMOCEPHALIC - Eye Exam Eye Exam: EOMI, Normal appearance, PERRL. absent: Nystagmus Pupil Exam: NORMAL ACCOMODATION, PERRL - ENT Exam ENT Exam: Mucous Membranes Moist, Normal Exam - Neck Exam Neck Exam: Full ROM, Normal Inspection - Respiratory Exam Respiratory Exam: NORMAL BREATHING PATTERN - Extremities Exam Extremities Exam: Full ROM. absent: Calf Tenderness, Pedal Edema - Back Exam Back Exam: Full ROM - Neurological Exam Neurological Exam: Alert, Awake, CN II-XII Intact, Oriented x3, Reflexes Normal Neuro motor strength exam: Left Upper Extremity: 5, Right Upper Extremity: 5, Left Lower Extremity: 5, Right Lower Extremity: 5 Additional comments: Speech clear, fluid No focal motor or sensory deficits No tremors or abnormal movements - Psychiatric Exam Psychiatric exam: Normal Affect, Normal Mood - Skin Skin Exam: Normal Color Assessment and Plan (1) Syncope Assessment & Plan: Imaging reviewed: -CT Head (02/23/19): No acute intracranial abnormality. Mild chronic microangiopathic changes and mild age-related global parenchymal volume loss. Small chronic lacunar infarctions in the basal ganglia and thalami. -Likely 2/2 vasovagal. -EEG ordered to r/o seizure---will f/u once completed. -CTA Head and Neck ordered to r/o VBI---will f/u once completed. -Continue to monitor and replace electrolytes as needed. -Continue supportive measures. -If CTA and EEG are negative, neuro will sign off. -Notify neuro team of any acute changes in pt's condition. 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 Olivo Status: Acute
[2019-02-26 11:12] LABS: BLOOD UREA NITROGEN 15 mg/dl (9-20); CALCIUM 8.5 mg/dL (8.4-10.2); GFR NON-AFRICAN AMERICAN > 60
[2019-02-26] MEDS ORDERED: Sodium Chloride 0.9% 100 ML ONE (11:46)
[2019-02-26] MEDS ORDERED: Iodixanol 320 MG/ML 100 ML BOTTLE IV ONE (11:46)
--- NOTE | 2019-02-26 12:54 | CP.PCM.CON ---
History of Present Illness - History of Present Illness History of Present Illness: 63 yo male admitted with weakness, vomiting, and diarrhea for 2 days. He was found to be profoundly hypokalemic when admitted. He states that his abdominal complaints have been present over 3 months after having colonoscopy elsewhere. Also had 4 stents placed 4 weeks ago. Currently under evaluation by neurology Review of Systems - Constitutional Constitutional: Weakness. absent: Chills - EENT Eyes: absent: Blurred Vision Ears: absent: Decreased Hearing Nose/Mouth/Throat: absent: Epistaxis - Cardiovascular Cardiovascular: absent: Chest Pain - Respiratory Respiratory: absent: Dyspnea - Gastrointestinal Gastrointestinal: Abdominal Pain, Loose Stools Past Patient History - Infectious Disease Hx of Infectious Diseases: None - Past Medical History & Family History Past Medical History?: Yes - Past Social History Smoking Status: Light Smoker < 10 Cigarettes Daily - CARDIAC Hx Cardiac Disorders: Yes Hx Hypertension: Yes - PULMONARY Hx Respiratory Disorders: No - NEUROLOGICAL Hx Neurological Disorder: No - HEENT Hx HEENT Problems: No - RENAL Hx Chronic Kidney Disease: No - ENDOCRINE/METABOLIC Hx Endocrine Disorders: No - HEMATOLOGICAL/ONCOLOGICAL Hx Blood Disorders: No - INTEGUMENTARY Hx Dermatological Problems: No - MUSCULOSKELETAL/RHEUMATOLOGICAL Hx Musculoskeletal Disorders: No Hx Falls: Yes - GASTROINTESTINAL Hx Gastrointestinal Disorders: Yes Hx Gastritis: Yes - GENITOURINARY/GYNECOLOGICAL Hx Genitourinary Disorders: No - PSYCHIATRIC Hx Psychophysiologic Disorder: No Hx Substance Use: No - SURGICAL HISTORY Hx Surgeries: Yes Hx Coronary Stent: Yes - ANESTHESIA Hx Anesthesia: Yes Hx Anesthesia Reactions: No Meds Allergies/Adverse Reactions: Allergies Allergy/AdvReac Type Severity Reaction Status Date / Time No Known Allergies Allergy Verified 02/12/19 12:53 - Medications Medications: Current Medications Amlodipine Besylate (Norvasc) 10 mg PO DAILY [facility] Last Admin: 02/26/19 09:14 Dose: 10 mg Clopidogrel Bisulfate (Plavix) 75 mg PO DAILY [facility] Last Admin: 02/26/19 09:15 Dose: 75 mg Enoxaparin Sodium (Lovenox) 40 mg SC DAILY [facility]; Protocol Last Admin: 02/26/19 09:13 Dose: 40 mg Famotidine (Pepcid) 20 mg PO BID [facility] Last Admin: 02/26/19 09:14 Dose: 20 mg Hydrocortisone (Cortizone 1% Cream) 1 applic TOP BID [facility] Potassium Chloride (Potassium Cl 10meq/50ml Sterile Water) 50 mls @ 50 mls/hr I VPB Q1 TYLOR Stop: 02/26/19 13:59 Ondansetron HCl (Zofran Tab) 4 mg PO Q8 PRN PRN Reason: Nausea/Vomiting Pantoprazole Sodium (Protonix Ec Tab) 40 mg PO DAILY [facility] Last Admin: 02/26/19 09:15 Dose: 40 mg Physical Exam - Constitutional Appears: No Acute Distress - Head Exam Head Exam: ATRAUMATIC - Eye Exam Eye Exam: Normal appearance Pupil Exam: PERRL - Respiratory Exam Respiratory Exam: Clear to Auscultation Bilateral - Cardiovascular Exam Cardiovascular Exam: REGULAR RHYTHM, +S1, +S2 - GI/Abdominal Exam GI & Abdominal Exam: Normal Bowel Sounds, Soft. absent: Tenderness Results - Vital Signs Recent Vital Signs: Last Vital Signs Temp 98.2 F 02/26/19 11:58 Pulse 72 02/26/19 11:58 Resp 20 02/26/19 11:58 BP 102/64 02/26/19 11:58 Pulse Ox 96 02/26/19 11:58 - Labs Result Diagrams: 02/25/19 04:30 02/26/19 10:15 Labs: Laboratory Results - last 24 hr 02/24/19 02/26/19 18:57 10:15 Sodium 136 Potassium 2.9 L Chloride 99 Carbon Dioxide 27 Anion Gap 13 BUN 15 Creatinine 1.0 Est GFR ( Amer) > 60 Est GFR (Non-Af Amer) > 60 Random Glucose 140 H Calcium 8.5 Carcinoembryonic Ag 1.3 - Imaging and Cardiology CT scan - abdomen Status: Report reviewed by me Assessment & Plan (1) Left sided abdominal pain Assessment and Plan: Ongoing abdominal pain and diarrhea post colonoscopy with removal of multiple polyps according to patient. Now with severe weakness and hypokalemia. Will do stool studies including fecal electrolytes and osmolality. Possible colonoscopy if cleared by Neuro and cardiology. Status: Acute
--- NOTE | 2019-02-26 13:19 | PCM.EEG ---
Electroencephalogram Report - Electroencephalogram Report Procedure Date: 02/25/19 Medication: Plavix, Amlodipine Interpretation: Technical Information: This was a 16 -channel EEG, 1-channel EKG routine EEG performed using an [employer] machine. Electrodes were applied using the 10/20 international placement system. Start; 14;58 End; 15;45 Total 47 min Clinical Information: syncope During resting wakefulness there was a symmetric posterior dominant rhythm at 9. Hz, 30-50 uV, which was reactive to eye opening and closing. Drowsiness (15;15) was associated with fragmentation of the posterior dominant rhythm and with slow roving eye movements. Light sleep was not recorded Hyperventilation was tried, poor effort. Photic stimulation was performed and there were no changes on the record. Focal abnormality; none ECG was associated with a normal sinus rhythm. Impression: This is a normal awake and drowsy electroencephalogram.
[2019-02-26] MEDS: Potassium CL 10 MEQ/50 ML 50 ML IVPB SCH ×2 (13:53→16:30)
--- NOTE | 2019-02-26 14:31 | CT ---
Date of service: 02/26/2019 PROCEDURE: CT Angiography of the neck with contrast HISTORY: syncope COMPARISON: None. TECHNIQUE: Contiguous axial images of the neck were obtained from the level of the skull-base to the superior mediastinum in the arteriographic phase of enhancement. Coronal and sagittal reformats or also generated. IV contrast dose: Radiation dose: Total exam DLP = 564.5 mGy-cm. This CT exam was performed using one or more of the following dose reduction techniques: Automated exposure control, adjustment of the mA and/or kV according to patient size, and/or use of iterative reconstruction technique. FINDINGS: RIGHT CAROTID ARTERIES: There is a calcified plaque in the right proximal internal carotid with a mild degree of stenosis LEFT CAROTID ARTERIES: Calcified plaque at the left carotid bifurcation with mild stenosis of the internal carotid. VERTEBRAL ARTERIES: Right Vertebral Artery: Normal. Left Vertebral Artery: Normal. OTHER FINDINGS: Aortic and carotid calcification IMPRESSION: Calcified plaques in both internal carotid arteries with mild stenosis CT Angiography of the Brain. HISTORY: syncope COMPARISON: None available. TECHNIQUE: CT angiography of the intracranial arteries was performed. Coronal and sagittal maximum intensity projection reformated images were generated. Radiation dose: Total exam DLP = 564.5 mGy-cm. This CT exam was performed using one or more of the following dose reduction techniques: Automated exposure control, adjustment of the mA and/or kV according to patient size, and/or use of iterative reconstruction technique. FINDINGS: INTERNAL CEREBRAL ARTERIES: Unremarkable. The skull base, petrous, cavernous and supraclinoid segments are bilaterally widely patent. ANTERIOR CEREBRAL ARTERIES: Unremarkable. A1 and A2 segments are widely patent. Smaller distal branches unremarkable, as visualized. MIDDLE CEREBRAL ARTERIES: Unremarkable. M1 and M2 segments are widely patent. Perisylvian branches grossly symmetric. POSTERIOR CIRCULATION: Basilar Artery: Unremarkable. Distal Vertebral Arteries: Unremarkable. Posterior Cerebral Arteries: Unremarkable. Posterior Inferior Cerebellar Arteries: Unremarkable. ANEURYSM/ VASCULAR MALFORMATIONS: None. OTHER FINDINGS: None. IMPRESSION: Unremarkable CT Angiography of the Brain.
[2019-02-26 17:13] LABS: HEPATITIS B SURFACE AG Negative (NEGATIVE)
[2019-02-26 17:30] LABS: HEPATITIS C ANTIBODY NEGATIVE (NEGATIVE)
--- NOTE | 2019-02-26 19:57 | PN ---
DATE: 02/26/2019 SUBJECTIVE: The patient seen and examined. Interim events noted. Consults noted and appreciated. GI consult noted and appreciated. Neurology followup and interventions noted and appreciated. The patient remains in progressive care unit with telemetry monitoring. Awake, responsive. Feels okay. Denies any specific complaint. Abdominal pain improved. No chest pain. No shortness of breath. No dizziness. No loss of consciousness. PHYSICAL EXAMINATION: GENERAL: The patient is in no acute distress. VITAL SIGNS: Stable. Temperature 98.2, pulse 72, respirations 20, blood pressure 102/64, saturation 96%. HEART: S1, S2 normal, regular. LUNGS: Good bilateral air exchange. ABDOMEN: Soft, nontender. No organomegaly. No fluid. Bowel sounds are present and normal. EXTREMITIES: No edema. No calf swelling. No tenderness. No acute ischemia. 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 DIAGNOSTIC DATA: Available diagnostic data reviewed. The patient's sodium is 136, potassium 2.9, chloride 99, bicarb 27, glucose 140. ASSESSMENT AND PLAN: Overall, the patient's general medical condition is stable. Plan as ordered. Telemetry monitoring does not reveal significant arrhythmia. Elieser Thurston MD
[2019-02-27 06:04] LABS: BLOOD UREA NITROGEN 18 mg/dl (9-20); CALCIUM 8.9 mg/dL (8.4-10.2); GFR NON-AFRICAN AMERICAN > 60
[2019-02-27 08:04] VITALS: BP 127/84; RESP 20; TEMP 98.7; O2SAT 97
[2019-02-27] MEDS ORDERED: Potassium Chloride 20 mEq/15 ml LIQ UD PO ONE (08:36)
[2019-02-27] MEDS: Enoxaparin 40 mg Syringe SC SCH (08:42)
[2019-02-27] MEDS: Pantoprazole 40 mg EC Tab PO SCH (08:44)
--- NOTE | 2019-02-27 09:48 | CP.PCM.PN ---
Subjective - Date & Time of Evaluation Date of Evaluation: 02/27/19 Time of Evaluation: 09:10 - Subjective Subjective: 63 y/o M was seen and examined by bedside with Dr Thurston. Pt reports feeling OK, denies nausea, vomiting or diarrhea. Last BM was this morning and was soft. Pt afebrile and tolerating PO. Objective - Vital Signs/Intake and Output Vital Signs (last 24 hours): Temp Pulse Resp BP Pulse Ox 98.7 F 76 20 127/84 97 02/27/19 08:03 02/27/19 08:42 02/27/19 08:03 02/27/19 08:42 02/27/19 08:03 - Medications Medications: Current Medications Amlodipine Besylate (Norvasc) 10 mg PO DAILY [facility] Last Admin: 02/27/19 08:42 Dose: 10 mg Clopidogrel Bisulfate (Plavix) 75 mg PO DAILY [facility] Last Admin: 02/27/19 08:44 Dose: 75 mg Enoxaparin Sodium (Lovenox) 40 mg SC DAILY [facility]; Protocol Last Admin: 02/27/19 08:42 Dose: 40 mg Famotidine (Pepcid) 20 mg PO BID [facility] Last Admin: 02/27/19 08:43 Dose: 20 mg Hydrocortisone (Cortizone 1% Cream) 1 applic TOP BID [facility] Last Admin: 02/27/19 08:41 Dose: 1 applic Ondansetron HCl (Zofran Tab) 4 mg PO Q8 PRN PRN Reason: Nausea/Vomiting Pantoprazole Sodium (Protonix Ec Tab) 40 mg PO DAILY [facility] Last Admin: 02/27/19 08:44 Dose: 40 mg - Labs Labs: 02/25/19 04:30 02/27/19 04:40 PT 10.6 Seconds (9.8-13.1) 02/23/19 18:00 INR 0.9 02/23/19 18:00 APTT 34.2 Seconds (25.6-37.1) 02/23/19 18:00 - Constitutional Appears: Well, No Acute Distress - Head Exam Head Exam: ATRAUMATIC, NORMAL INSPECTION - Eye Exam Eye Exam: EOMI, Normal appearance - ENT Exam ENT Exam: Mucous Membranes Moist - Neck Exam Neck Exam: Full ROM. absent: Meningismus, Tenderness - Respiratory Exam Respiratory Exam: Clear to Ausculation Bilateral, NORMAL BREATHING PATTERN - Cardiovascular Exam Cardiovascular Exam: REGULAR RHYTHM, +S1, +S2 - GI/Abdominal Exam GI & Abdominal Exam: Soft. absent: Distended, Firm, Guarding, Rigid, Tenderness - Extremities Exam Extremities Exam: Full ROM, Normal Inspection. absent: Calf Tenderness, Pedal Edema - Neurological Exam Neurological Exam: Alert, Awake, Oriented x3 Assessment and Plan - Assessment and Plan (Free Text) Assessment: 63 y/o M with a pMHx of CHF, Irritable bowel syndrome, HTN, dyspepsia and chronic abdominal pain was admitted due to syncopal episode and hypokalemia. PLAN: >Syncope --Afebrile, VSS. --Likely vasovagal episode. --Cardiology on board, Dr Paul. --Neurology on borad, Dr Olivo. --EEG: normal; CTA Head and neck unremarkable --F/U Neuro recommendations >Chronic abdominal pain. --No nausea or vomiting today. --GI on board, Dr Garcia. --Possible colonoscopy once stable.
[2019-02-27] MEDS ORDERED: Potassium Chloride 20 mEq 100 ML IVPB ONE (10:34)
--- NOTE | 2019-02-27 11:05 | CP.PCM.PCO ---
Physician Communication Note - Physician Communication Note Physician Communication Note: Neuro Sign Off
[2019-02-27 11:11] VITALS: PULSE 90
--- NOTE | 2019-02-27 11:36 | CP.PCM.DIS ---
Provider - Provider Date of Admission: 02/25/19 10:56 Attending physician: Elieser Thurston MD Primary care physician: Dr. Thurston Consults: 02/24/19 06:27 Cardiology Consult Routine Comment: Consulting Provider: Aman Cheung V Consulting Physician: Aman Cheung V Reason for Consult: Syncope, hypokalemia Gastroenterology Consult Routine Comment: Consulting Provider: Juan Garcia Consulting Physician: Juan Garcia Reason for Consult: abdominal pain, recent endoscopy and colonoscopy General Surgery Consult Routine Comment: Consulting Provider: Qamar Daigle Consulting Physician: Qamar Daigle Reason for Consult: Recent endoscopy and colonoscopy Neurology Consult Routine Comment: Consulting Provider: Herve Fishman Consulting Physician: Herve Fishman Reason for Consult: Syncope Time Spent in preparation of Discharge (in minutes): 35 Diagnosis - Discharge Diagnosis (1) Syncope Status: Acute Comment: --Likely vasovagal episode. (2) Hypokalemia Status: Acute Hospital Course - Lab Results Lab Results: Most Recent Lab Values WBC 7.0 K/uL (4.8-10.8) 02/25/19 04:30 RBC 4.92 Mil/uL (4.40-5.90) 02/25/19 04:30 Hgb 15.4 g/dL (12.0-18.0) 02/25/19 04:30 Hct 44.7 % (35.0-51.0) 02/25/19 04:30 MCV 90.8 fl (80.0-94.0) 02/25/19 04:30 MCH 31.4 pg (27.0-31.0) H 02/25/19 04:30 MCHC 34.6 g/dL (33.0-37.0) 02/25/19 04:30 RDW 13.9 % (11.5-14.5) 02/25/19 04:30 Plt Count 258 K/uL (130-400) 02/25/19 04:30 MPV 8.2 fl (7.2-11.7) 02/23/19 18:00 Neut % (Auto) 70.6 % (50.0-75.0) 02/23/19 18:00 Lymph % (Auto) 19.8 % (20.0-40.0) L 02/23/19 18:00 [place] % (Auto) 6.7 % (0.0-10.0) 02/23/19 18:00 Eos % (Auto) 1.9 % (0.0-4.0) 02/23/19 18:00 Baso % (Auto) 1.0 % (0.0-2.0) 02/23/19 18:00 Neut # (Auto) 8.9 K/uL (1.8-7.0) H 02/23/19 18:00 Lymph # (Auto) 2.5 K/uL (1.0-4.3) 02/23/19 18:00 [place] # (Auto) 0.8 K/uL (0.0-0.8) 02/23/19 18:00 Eos # (Auto) 0.2 K/uL (0.0-0.7) 02/23/19 18:00 Baso # (Auto) 0.1 K/uL (0.0-0.2) 02/23/19 18:00 PT 10.6 Seconds (9.8-13.1) 02/23/19 18:00 INR 0.9 02/23/19 18:00 APTT 34.2 Seconds (25.6-37.1) 02/23/19 18:00 Sodium 138 mmol/l (132-148) 02/27/19 04:40 Potassium 3.3 MMOL/L (3.6-5.0) L 02/27/19 04:40 Chloride 99 mmol/L (98-107) 02/27/19 04:40 Carbon Dioxide 28 mmol/L (22-30) 02/27/19 04:40 Anion Gap 14 (10-20) 02/27/19 04:40 BUN 18 mg/dl (9-20) 02/27/19 04:40 Creatinine 1.0 mg/dl (0.8-1.5) 02/27/19 04:40 Est GFR ( Amer) > 60 02/27/19 04:40 Est GFR (Non-Af Amer) > 60 02/27/19 04:40 Random Glucose 126 mg/dL (75-110) H 02/27/19 04:40 Calcium 8.9 mg/dL (8.4-10.2) 02/27/19 04:40 Phosphorus 3.2 mg/dl (2.5-4.5) 02/27/19 07:30 Magnesium 2.1 MG/DL (1.6-2.3) 02/27/19 07:30 Total Bilirubin 0.3 mg/dl (0.2-1.3) 02/25/19 04:30 AST 24 U/L (17-59) 02/25/19 04:30 ALT 54 U/L (21-72) 02/25/19 04:30 Alkaline Phosphatase 68 U/L (38-126) 02/25/19 04:30 Troponin I < 0.0120 ng/mL (0.00-0.120) 02/23/19 18:00 Total Protein 6.5 G/DL (6.3-8.2) 02/25/19 04:30 Albumin 3.7 g/dL (3.5-5.0) 02/25/19 04:30 Globulin 2.8 gm/dL (2.2-3.9) 02/25/19 04:30 Albumin/Globulin Ratio 1.3 (1.0-2.1) 02/25/19 04:30 Carcinoembryonic Ag 1.3 ng/mL (0-3.0) 02/24/19 18:57 Hep Bs Antigen Negative (NEGATIVE) 02/24/19 18:57 Hepatitis C Antibody Negative (NEGATIVE) 02/24/19 18:57 - Hospital Course Hospital Course: 63 y/o M with a pMHx of CHF, Irritable bowel syndrome, HTN, dyspepsia and chronic abdominal pain presented to ED with nausea, vomiting, diarrhea; was admitted due to syncopal episode and hypokalemia. Cardiology consulted, Dr Paul. Neurology consulted, Dr Olivo. CT scan of the head did not show any concerning findings, but there were some chronic ischemic changes noted. EEG: normal; CTA Head and neck unremarkable. GI was consulted, dr Garcia. Colonoscopy as outpatient was recommended. Hypokalemia improved after regular diet and supplementation. Today, pt was seen and examined by bedside with dr Thurston. Pt reports feeling OK, denies nausea, vomiting or diarrhea. Last BM was this morning and was soft. Pt afebrile and tolerating PO. Pt stable to be discharged home. Discharge Exam - Additional Findings Additional findings: - Constitutional Appears: Well, No Acute Distress - Head Exam Head Exam: ATRAUMATIC, NORMAL INSPECTION - Eye Exam Eye Exam: EOMI, Normal appearance - ENT Exam ENT Exam: Mucous Membranes Moist - Neck Exam Neck Exam: Full ROM. absent: Meningismus, Tenderness - Respiratory Exam Respiratory Exam: Clear to Ausculation Bilateral, NORMAL BREATHING PATTERN - Cardiovascular Exam Cardiovascular Exam: REGULAR RHYTHM, +S1, +S2 - GI/Abdominal Exam GI & Abdominal Exam: Soft. absent: Distended, Firm, Guarding, Rigid, Tenderness - Extremities Exam Extremities Exam: Full ROM, Normal Inspection. absent: Calf Tenderness, Pedal Edema - Neurological Exam Neurological Exam: Alert, Awake, Oriented x3 Discharge Plan - Discharge Medications Prescriptions: Hydrocortisone 1% Cream [Cortizone 1% Cream] 1 applic TOP BID #1 tube - Follow Up Plan Condition: FAIR Disposition: HOME/ ROUTINE Referrals: Elieser Thurston MD [Staff Provider] - Juna Garcia MD [Staff Provider] -
== END 2019-02-27 12:03 | disposition home or self-care (01) | DRG 312 ==
LOC: H.ER 16:54 → H.ERHOLD 18:57 → OBSVTOIN 18:57 → INTOOBSV 18:57 → UNDOADMOB 18:57 → H.ERHOLD 21:46 → H.TEL 21:46 → OBSVTOIN 02-25 10:56 → INTOOBSV 02-25 10:56 → H.ERHOLD 02-25 10:56 → H.TEL 02-25 10:56
PROVIDERS: ADMIT Internal Medicine; ATTEND Internal Medicine
DX: R55 Syncope and collapse (principal); E87.6 Hypokalemia; G89.29 Other chronic pain; I11.0 Hypertensive heart disease with heart failure; I25.10 Atherosclerotic heart disease of native coronary artery without angina pectoris; I50.9 Heart failure, unspecified; I73.9 Peripheral vascular disease, unspecified; K58.9 Irritable bowel syndrome, unspecified; Z79.02 Long term (current) use of antithrombotics/antiplatelets; Z86.010 Personal history of colon polyps; Z86.73 Personal history of transient ischemic attack (TIA), and cerebral infarction without residual deficits; F17.210 Nicotine dependence, cigarettes, uncomplicated; Z95.5 Presence of coronary angioplasty implant and graft; K29.70 Gastritis, unspecified, without bleeding; Z79.899 Other long term (current) drug therapy; E66.9 Obesity, unspecified; Z68.32 Body mass index [BMI] 32.0-32.9, adult; E78.00 Pure hypercholesterolemia, unspecified; E78.5 Hyperlipidemia, unspecified